=== PATIENT | male | born 1960 | race Caucasian/White ===

== ENCOUNTER 2022-02-26 15:04 | Outpatient (REF) | payer MEDICARE, OTHER, SELFPAY ==
--- NOTE | ~2022-02-26 | US_ITS ---
EXAMINATION: US THYROID CLINICAL INFORMATION: Lump/mass on neck. COMPARISON: None TECHNIQUE: Linear transducer grayscale and color Doppler examination with attention to the region of the thyroid. Additional imaging also includes the bilateral parotid region. Technically suboptimal study secondary to body habitus and position of gland. FINDINGS: SIZE: Measurements of the thyroid lobes and nodules are given in sagittal, anteroposterior and transverse dimensions respectively. Right Thyroid Lobe: 5.3 x 2.0 x 2.3 cm, volume 12.8 mL. Parenchyma: The gland echotexture is within normal. Thyroid vascularity is normal. Left Thyroid Lobe: 4.6 x 1.3 x 1.6 cm, volume 5.0 mL. Parenchyma: The gland echotexture is within normal. Thyroid vascularity is normal. Isthmus: 0.6 cm in maximum AP dimension. No focal thyroid nodule is seen. NODES: No lymphadenopathy is seen in the tissue surrounding the thyroid gland. There is a node adjacent to the left parotid with normal yves architecture and short axis dimensions 0.6 cm. ADDITIONAL: Additional imaging bilateral parotid region shows no cystic or solid mass. US/US thyroid IMPRESSION: -Unremarkable thyroid. No focal nodule. -Node adjacent to left parotid with normal yves architecture and short axis dimensions 0.6 cm. -Otherwise, no cystic or solid mass seen in bilateral parotid regions.
== END 2022-02-26 15:05 | disposition home or self-care (01) ==
LOC: HO.US 15:04
PROVIDERS: PCP Internal Medicine Geriatric Medicine; Visit Provider Internal Medicine Geriatric Medicine
DX: R22.1 Localized swelling, mass and lump, neck (principal)
CPT/HCPCS: 76536

== ENCOUNTER → 2022-06-04 08:04 | Outpatient (BNVA) | payer MEDICARE, OTHER, SELFPAY | PROVIDERS: PCP Internal Medicine Geriatric Medicine; Visit Provider Nurse Practitioner Family | DX: Z01.818 Encounter for other preprocedural examination (principal) | CPT/HCPCS: 99202 ==

== ENCOUNTER 2022-08-13 12:43 | Outpatient (REF) | payer MEDICARE, OTHER, SELFPAY ==
[2022-08-13 13:37] LABS: Hematocrit 49.7 % (42.0-52.0); Hemoglobin 15.7 g/dl (14.0-18.0); Mean Corpuscular HGB Conc 31.6 g/dl (31.0-36.0); Mean Corpuscular Hemoglobin 27.5 pg (27.0-33.0); Mean Platelet Volume 9.5 fL (9.4-12.4); Platelet Count 291 X10*3/uL (160-400); Red Blood Count 5.71 X10*6/uL (4.60-5.80); Red Cell Distribution Width 13.7 % (11.0-16.0); White Blood Count 11.6 X10*3/uL (4.8-10.8)
[2022-08-13 14:04] LABS: Alanine Aminotransferase 37 U/L (0-40); Albumin Level 4.4 g/dL (3.5-5.0); Alkaline Phosphatase 78 U/L (39-117); Anion Gap 16 (12-20); Aspartate Amino Transferase 20 U/L (5-37); Bilirubin Total 0.6 mg/dL (0.0-1.0); Blood Urea Nitrogen 13 mg/dL (9-16); Calcium 9.4 mg/dL (8.4-10.2); Carbon Dioxide 30 mmol/L (22-29); Chloride 101 mmol/L (96-108); Estimated Glomerular Filt Rate > 60; Glucose Random 82 mg/dL (60-115); Potassium 3.9 mmol/L (3.3-5.1); Sodium 143 mmol/L (135-145); Total Protein 7.1 g/dL (6.5-8.0)
== END 2022-08-13 12:44 | disposition home or self-care (01) ==
LOC: HO.LAB 12:43
PROVIDERS: PCP Internal Medicine Geriatric Medicine; Visit Provider Nurse Practitioner Family
DX: Z12.11 Encounter for screening for malignant neoplasm of colon (principal)
CPT/HCPCS: 36415; 80053; 85027

== ENCOUNTER 2023-11-21 11:38 | Outpatient (REF) | payer MEDICARE, OTHER, SELFPAY | END 2023-11-21 11:39 | disposition home or self-care (01) | LOC: HO.HHCL 11:38 | PROVIDERS: Visit Provider Internal Medicine Geriatric Medicine | DX: I12.9 Hypertensive chronic kidney disease with stage 1 through stage 4 chronic kidney disease, or unspecified chronic kidney disease (principal); N18.31 Chronic kidney disease, stage 3a; F31.9 Bipolar disorder, unspecified; Z79.899 Other long term (current) drug therapy | CPT/HCPCS: 36415; 80053; 80061; 80178; 84443; 85025 ==

== ENCOUNTER 2024-05-19 14:21 | Outpatient (REF) | payer MEDICARE, OTHER, SELFPAY ==
[2024-05-19 16:32] LABS: Anion Gap 12 (12-20); Blood Urea Nitrogen 16 mg/dL (9-16); Calcium 9.7 mg/dL (8.4-10.2); Carbon Dioxide 33 mmol/L (22-29); Chloride 100 mmol/L (96-108); Estimated Glomerular Filt Rate > 60; Glucose Random 92 mg/dL (60-115); Sodium 142 mmol/L (135-145)
[2024-05-19 16:38] LABS: Lithium 0.58 mmol/L (0.60-1.20)
== END 2024-05-19 14:22 | disposition home or self-care (01) ==
LOC: HO.HHCL 14:21
PROVIDERS: Visit Provider Internal Medicine Geriatric Medicine
DX: F31.9 Bipolar disorder, unspecified (principal); I10 Essential (primary) hypertension; Z79.899 Other long term (current) drug therapy
CPT/HCPCS: 36415; 80048; 80178

== ENCOUNTER 2025-03-17 09:23 | Outpatient (REF) | payer MEDICARE, OTHER, SELFPAY ==
--- OUTSIDE RECORDS SUMMARY | 2025-03-17 10:18 | XMS_ITS | Clinical Summary ---
Author Organization [employer] Address [address] [facility] 7t [place] [address] Care Team Providers Care Crushing Foreman Name Role Phone Name, Shabbir SHEPARD Primary Care Provider [phone] Ciro Lilly DMD Unavailable GreggOneida silva OD Unavailable [phone] Channing Montgomery DPM Unavailable [phone] Allergies Active Allergy Reactions Criticality Noted Date Comments Serbian Cockroach 08/25/2024 Hives and agioedema Penicillin V High 11/01/2013 Other reaction(s): itchiness Medications sildenafil (Viagra) 50 MG tablet take 1 tablet by oral route every day as needed approximately 1 hour before sexual activity 07/17/20 22 Active albuterol 108 (90 Base) MCG/ACT inhaler inhale 2 puff by inhalation route every 4 - 6 hours as needed 03/05/20 22 Active EPINEPHrine (Epipen) 0.3 MG/0.3ML injection syringe inject 0.3 milliliter by intramuscular route once as needed for anaphylaxis 02/11/20 20 Active lamoTRIgine (LaMICtal) 100 MG tablet TAKE 1 TABLET BY MOUTH EVERY DAY 90 tablet 5 07/28/20 24 Active buPROPion (Wellbutrin) 75 MG tablet TAKE 1 TABLET BY MOUTH DAILY IN THE MORNING 90 tablet 5 07/28/20 24 Active lithium ER (Eskalith) 450 MG 12 hr tablet TAKE 1 TABLET BY MOUTH EVERY DAY 180 tablet 3 07/28/20 24 Active atorvastatin (Lipitor) 20 MG tablet TAKE 1 TABLET BY MOUTH EVERY DAY 90 tablet 3 07/28/20 24 Active potassium chloride ER (Micro-K) 10 MEQ ER capsule TAKE 1 CAPSULE BY MOUTH EVERY DAY WITH FOOD 30 capsule 5 09/23/20 24 Active albuterol (2.5 MG/3ML) 0.083% nebulizer solutionIndica tions:Cough in adult Take 3 mL (2.5 mg) by nebulization every 6 (six) hours if needed for wheezing. 75 mL 2 11/24/19 25 Active Aspirin Low Dose 81 MG EC tablet TAKE 1 TABLET BY MOUTH EVERY DAY 90 tablet 3 12/01/19 25 Active furosemide (Lasix) 20 MG tablet TAKE 1 TABLET BY MOUTH EVERY DAY NEEDED FOR leg swelling 30 tablet 2 12/17/19 25 Active ibuprofen 800 MG tabletIndicati ons:Anterior knee pain, unspecified laterality TAKE 1 TABLET BY MOUTH THREE TIMES DAILY WITH FOOD NEEDED FOR MILD OR MODERATE PAIN 90 tablet 01/12/20 25 Active clonazePAM (KlonoPIN) 2 MG tabletIndicati ons:Anxiety TAKE 1 TABLET BY MOUTH TWICE DAILY FOR 28 DAYS 56 tablet 03/10/20 25 Active clonazePAM (KlonoPIN) 2 MG tabletIndicati ons:Anxiety TAKE 1 TABLET BY MOUTH TWICE DAILY FOR 28 DAYS 56 tablet 02/03/20 25 2024 Discontinued Active Problems Problem Noted Date Diagnosed Date Missing teeth, acquired 09/26/2023 Dental plaque 09/26/2023 Dental caries 09/26/2023 Localized gingival recession 09/26/2023 Anterior knee pain 07/10/2023 Stage 3a chronic kidney disease (CKD) 12/25/2022 COVID 11/19/2022 Assessment & Plan (12/17/2022 12:57 PM EST): Symptom started 4 days ago, currently having coughing and chills, no shortness of breath, will start on paxlovid, risk vs benefits discuss, hold atorvastatin, in case of worsening symptoms visit er Morbid obesity 12/19/2017 Obstructive sleep apnea syndrome 06/23/2017 Snoring 05/09/2017 Overview (07/10/2023): Will start benzonatate Assessment & Plan (11/19/2022 1:28 PM EST): Patient started with symptoms of cough, chills on 11/16, he tested positive for covid Foot pain 04/11/2017 Hypertensive disorder 09/24/2016 Hepatitis C antibody test positive 09/24/2016 Overview (02/26/2024): Treated Hep C in the past Obesity (BMI 30-39.9) 06/25/2016 Asthma 08/26/2014 Hyperlipidemia 08/26/2014 Bipolar I disorder 12/02/2013 Infectious viral hepatitis Encounters Date Type Department Care Team Description 03/17/2025 10:00 AM EDT Office Visit [facility] ADULT DENTAL [address] [place] [address] Ciro Lilly DMD Arrived 03/10/2025 Telephone [facility] [address] [place] [address] Shabbir Treviño MD Med Refill 03/04/2025 Refill [facility] [address] [place] [address] Shabbir Treviño MD Anxiety 02/28/2025 Refill [facility] [address] [place] [address] Shabbir Treviño MD Anxiety 02/22/2025 1:00 PM EDT Office Visit [facility] [address] [place] [address] Aimee Sherman 01/28/2025 Population Health Risk Score [facility] ([facility] Department [address] [place] [phone] Provider, Population Health Generic 01/26/2025 Refill [facility] [address] [place] [address] Shabbir Treviño MD Anxiety 01/17/2025 2:00 PM EST Office Visit [facility] [address] [place] [address] Pallavi Mead MD Screen for sexually transmitted diseases (Primary Dx); Infectious viral hepatitis 01/17/2025 Telephone [facility] [address] [place] [address] Naa Aldana RN 01/17/2025 Travel 01/14/2025 Telephone [facility] [address] [place] [address] Naa Aldana RN 01/12/2025 11:15 AM EST Office Visit [facility] [address] [place] [address] NameShabbir MD Hypertension, unspecified type (Primary Dx); Hyperlipidemia, unspecified hyperlipidemia type; Bipolar I disorder (CMS/HCC); Encounter for screening for malignant neoplasm of colon; Hypertrophic toenail; Nocturia 01/11/2025 Refill [facility] [address] [place] [address] NameShabbir MD Anterior knee pain, unspecified laterality 12/30/2024 Refill [facility] [address] [place], [place] [phone] Shabbir Treviño MD Anxiety 12/27/2024 Telephone [facility] [address] [place] [address] Shabbir Treviño MD 12/18/2024 Refill [facility] [address] [place], [place] [phone] Nelly Mcneal NP Anxiety from Last 3 Months Immunizations Name Administration Dates Next Due Hep A, Adult 06/17/2016,12/14/2015 Hep B, adult 01/16/2016,12/14/2015 Influenza Quadrivalent Adjuvanted 08/21/2023 Influenza injectable quadriv alent IIV4 with preservative 09/11/2018,09/24/2016,08/07/2015 Influenza injectable quadriv alent preservative free 08/08/2022,08/22/2020,09/13/2019,2016 Influenza, High Dose Seasona l, Preservative Free 08/25/2024 Influenza, IIV3, injectable 08/26/2014 Influenza, Split (incl. diana fied surface antigen) 11/01/2013 Pfizer Covid-19 Vaccine 12+ 08/25/2024, Pfizer Covid-19 Vaccine 12+ Bivalent 12/25/2022, 08/20/2022 Pfizer Covid-19 Vaccine 12+ joey-sucrose (Grace Cap) 04/11/2022 Pneumococcal Conjugate PCV 20 07/11/2023 Tdap 02/25/2024,12/02/2013 Zoster, Recombinant 09/15/2023,07/16/2023 Family History Medical History Relation Name Comments No Known Problems Brother No Known Problems Father Hypertension Mother No Known Problems Sister Relation Name Status Comments Brother Father Mother Sister Social History Tobacco Use Types Packs/Day Years Used Date Smoking Tobacco: Never Passive Smoke Exposure: Never Smokeless Tobacco: Never Tobacco Cessation:Counseling Given: Not Answered Alcohol Use Standard Drinks/Week Comments Yes 0 (1 standard drink = 0.6 oz pur e alcohol) socially Alcohol Answer Date Recorded Frequency of Alcohol Consumption Not on file 05/19/2024 Average Number of Drinks Not on file 024 Frequency of Binge Drinking Not on file 01/2024 Score 0 05/19/2024 Depression Answer Date Recorded Patient Health Questionnaire-9 Score 12 01/12/2025 Patient Health Questionnaire-9 Score 12 01/12/2025 Last PHQ-9: Questionnaire Data Not on file 0 01/12/2025 Housing Stability Answer Date Recorded What is your housing situation today? I have housing today, but I am worried about losing housing in the future 01/17/[address] you li ve. Do you have problems with any of the following? None of the above 01/17/2025 Food Insecurity Answer Date Recorded Within the past 12 months, y ou worried that your food would run out before you got money to buy more: Never True 02/25/2024 Within the past 12 months,th e food you bought just didn't last and you didn't have enough money to get more: Never True 08/2024 Transportation Answer Date Recorded In the past 12 months, has l ack of transportation kept you from medical appts, meetings, work or from getting things needed for daily living? Yes, it has kept me from medical appointments or getting medications. 02/25/2024 Utilities Answer Date Recorded In the past 12 months, has t he electric, gas, oil or water company threatened to shut off services in your home? No 02/25/2024 Depression Answer Date Recorded Patient Health Questionnaire-2 Score 3 01/12/2025 Internet Access Answer Date Recorded Internet Access Q1 Yes 01/17/2025 Internet Access Q2 Not on file 01/17/2025 Sex and Gender Information Value Date Recorded Sex Assigned at Male 09/16/2022 10:18 AM EDT Legal Sex Male 10:18 AM EDT Gender Identity Male 09/16/2022 10:18 AM EDT Sexual Orientation Straight 09/16/2022 10 :18 AM EDT Last Filed Vital Signs Vital Sign Reading Time Taken Comments Blood Pressure 134/80 03/17/2025 9:38 AM EDT Pulse 74 03/17/2025 9:38 AM EDT Temperature 36.7 ??C (98 ??F) 01/12/2025 11:21 AM EST Respiratory Rate 18 01/17/2025 2:04 PM EST Oxygen Saturation 98% 08/25/2024 12:01 PM EDT Inhaled Oxygen Concentration - - Weight 122 kg (269 lb 6.4 oz) 01/17/2025 2:04 PM EST Height 181 cm (5' 11.26 ) 01/17/2025 2:04 PM EST Body Mass Index 37.3 01/17/2025 2:04 PM EST Plan of Treatment Upcoming Encounters Date Type Department Care Team (Late st Contact Info) Description 04/08/2025 11:15 AM EDT Office Visit [facility] [address] [place] [address] Name, MD Shabbir [address] [place] [address] 05/02/2025 2:30 PM EDT Office Visit [facility] [address] [place] [address] Patrick Young, MEHRANS [address] [place] [address] 05/04/2025 3:00 PM EDT Office Visit [facility] OPT[facility] [address] [place] [address] GreggOneida silva, OD [address] [place] [address] 08/30/2025 1:00 PM EDT Office Visit [facility] [address] [place] [address] Aimee [place] Health Maintenance Due Date Last Done Comments Anal Pap 1958 CT Colonography 1958 FIT DNA/Cologuard 1958 FIT 1958 FOBT 1958 Sigmoidoscopy 1958 Hepatitis C Screening 1976 Hepatitis B Vaccines (3 of 3 - Risk 3-dose series) 06/13/2016 01/16/2016, 12/14/2015 RSV Patients and Patients Aged 60 years or older (1 - Risk 60-74 years 1-dose series) 2018 Colonoscopy 03/08/2019 03/08/2014 Colorectal Cancer Screening 03/08/2019 Dental Oral Exam 08/25/2025 02/22/2025, 08/2023, 10/28/2019, Additional history exists Dental Prophylaxis 08/25/2025 02/22/2025, 1 11/26/2022, 10/28/2019, Additional history exists Depression Screening 01/12/2026 01/12/2025, 01/12/20 Alcohol/Substance Use Screening 01/17/2026 01/17/2025 SDOH Screening 01/17/2026 01/17/2025 Dental X-Ray: Bitewings 02/23/2026 02/23/20 25, 09/26/2023, 10/28/2019, Additional history exists Tobacco Screening 03/17/2026 03/17/2025 Dental X-Ray: Full Mouth 09/27/2026 023, 10/28/2019, 02/26/2016 Lipid Panel 11/21/2028 11/21/2023, 07/04/2022, 06/06/2020 DTaP/Tdap/Td Vaccines (3 - Td or Tdap) 02/24/2034 02/25/2024, 12/02/2013 Hepatitis A Vaccines Completed 06/17/2016, 12/14/19 16 Pneumococcal Vaccine: 50+ Years Completed 07/11/2023 Zoster Vaccines Completed 09/15/2023, 07/16/2023 COVID-19 Vaccine Completed 08/25/2024, 06/2023, 08/20/2022, Additional history exists Influenza Vaccine Completed 08/25/2024, , 08/08/2022, Additional history exists HIB Vaccines Aged Out No longer eligi ble based on patient's age to complete this topic HPV Vaccines Aged Out No longer eligi ble based on patient's age to complete this topic IPV Vaccines Aged Out No longer eligi ble based on patient's age to complete this topic Meningococcal Vaccine Aged Out No jes [place] eligible based on patient's age to complete this topic RSV under 20 months Aged Out No longe r eligible based on patient's age to complete this topic Rotavirus Vaccines Aged Out No longer eligible based on patient's age to complete this topic Procedures Procedure Name Priority Date/Time Associated Diagnosis Comments NO CHARGE PROCEDURE Routine 03/17/2025 1 0:00 AM EDT PERIODIC ORAL EVALUATION - ESTABLISHED PATIENT Routine 02/22/2025 1:00 PM EDT PROPHYLAXIS - ADULT Routine 02/22/2025 1 :00 PM EDT INTRAORAL - PERIAPICAL EACH ADDITIONAL RADIOGRAPHIC IMAGE Routine 02/22/2025 1:00 PM EDT INTRAORAL - PERIAPICAL FIRST RADIOGRAPHIC IMAGE Routine 02/22/2025 1:00 PM EDT BITEWINGS - 4 RADIOGRAPHIC IMAGES Routine 02/22/2025 1:00 PM EDT ORAL HYGIENE INSTRUCTIONS Routine 02/22/2025 1:00 PM EDT CASE PRESENTATION, DETAILED AND EXTENSIVE TREATMENT PLANNING Routine 02/22/2025 1:00 PM EDT INTRAORAL - PERIAPICAL EACH ADDITIONAL RADIOGRAPHIC IMAGE Routine 02/22/2025 1:00 PM EDT LIPID PANEL, STANDARD Routine 11/21/2023 11:42 AM EST Hypertension, unspecified type Bipolar I disorder (CMS/HCC) Stage 3a chronic kidney disease (CKD) (CMS/HCC) INTRAORAL - COMPLETE SERIES OF RADIOGRAPHIC IMAGES Routine 09/26/2023 1:00 PM EST HM COLONOSCOPY Routine 03/08/2014 from Last 3 Months or Most Recently Relevant to Health Maintenance Results * (ABNORMAL) Lipid Panel, Standard (11/21/2023 11:42 AM EST) Triglycerides 122 <150 mg/dL [facility] Comment:Desirable Triglyceri de: less than 150 mg/dLBorderline High Triglyceride 150-199 mg/dLHigh Triglyceride: 200-499 mg/dLVery High Triglyceride: greater than or equal to 5OO mg/dL Cholesterol 124 <200 mg/dL [facility] Comment:Desirable Cholestero l: less than 200 mg/dLBorderline High Cholesterol: 200-239 mg/dLHigh Cholesterol: greater than 239 mg/dL LDL Cholesterol Calculated 61 <100 mg/dL [facility] Comment:Desirable LDL: less than 100 mg/dLNear Optimal/Above Optimal LDL: 110- 129 mg/dLBorderline High LDL: 130-159 mg/dLHigh LDL: 160-189 mg/dLVery High LDL: greater than or equal to 190 mg/dL HDL Cholesterol 39(L) >40 mg/dL [facility] Comment:Desirable HDL: great er than 40 mg/dL Note: This HDL assay may give artificially low results in patients with liver disease. Blood Venous blood specimen / Unknown 11/21/2023 11:42 AM EST 11/21/2023 1:25 PM EST Shabbir Treviño MD LAB BLOOD ORDERABLES Final Resul t [facility] [address] [place] [phone] * (ABNORMAL) Colonoscopy (03/08/2014) Colonoscopy Abnormal(A ) Normal [facility] External Provider HEALTH MAINTENANCE Final Result from Last 3 Months or Most Recently Relevant to Health Maintenance Insurance [place] [address] [place] [id number] [facility] STANDARD DENTAL - HSN FULL (MEDICAID) Care Teams Crushing Foreman Relationship Specialty Start Date End Date Name, MD Shabbir [address] [place] [address] PCP - General Family Medicine 02/21/16 Ciro Lilly DMD [address] [place] [address] Dental Mechanical Piping Designer 01/17/25 Oneida Escobedo OD [address] [place] [address] Optometry 01/17/25 Channing [place] DPM [address] [address] Podiatry 01/17/25
--- OUTSIDE RECORDS SUMMARY | 2025-03-17 10:18 | XMS_ITS | Encounter Summary ---
Author Organization [employer] Address [address] [place] [address] Care Team Providers Care Posting Machine Operator Name Role Phone Name, Shabbir SHEPARD Primary Care Provider [phone] Ciro Lilly DMD Unavailable GreggOneida silva OD Unavailable [phone] Channing [place] DPM Unavailable [phone] Reason for Visit * Reason Comments Med Refill Encounter Details Date Type Department Care Team (Late st Contact Info) Description 10/06/2024 Refill [facility] [address] [place], [place] [phone] Name, MD Shabbir [address] [place], [place] [phone] Social History Tobacco Use Types Packs/Day Years Used Date Smoking Tobacco: Never Smokeless Tobacco: Never Alcohol Use Standard Drinks/Week Comments Yes 0 (1 standard drink = 0.6 oz pur e alcohol) socially Alcohol Answer Date Recorded Frequency of Alcohol Consumption Not on file 05/19/2024 Average Number of Drinks Not on file 024 Frequency of Binge Drinking Not on file 01/2024 Score 0 05/19/2024 Depression Answer Date Recorded Patient Health Questionnaire-9 Score 14 02/25/2024 Patient Health Questionnaire-9 Score 14 02/25/2024 Last PHQ-9: Questionnaire Data Not on file 0 02/25/2024 Housing Stability Answer Date Recorded What is your housing situation today? I have duncan nair 02/25/[address] you li ve. Do you have problems with any of the following? None of the above 02/25/2024 Food Insecurity Answer Date Recorded Within the [...] Date Recorded Patient Health Questionnaire-2 Score 3 02/25/2024 Sex and Gender Information Value Date Recorded Sex Assigned at Male 09/16/2022 10:18 AM EDT Legal Sex Male 10:18 AM EDT Gender Identity Male 09/16/2022 10:18 AM EDT Sexual Orientation Straight 09/16/2022 10 :18 AM EDT documented as of this encounter Plan of Treatment Upcoming Encounters Date Type Department Care Team (Late st Contact Info) Description 04/08/2025 11:15 AM EDT Office Visit [facility] [address] [place] [address] Name, MD Shabbir [address] [place] [address] 05/02/2025 2:30 PM EDT Office Visit [facility] ADULT DENTAL [address] [place] [address] Patrick Young DDS [address] [place] [address] 05/04/2025 3:00 PM EDT Office Visit [facility] OPTOMETRY [address] [place] [phone] Oneida Escoebdo, OD [address] [place] [address] 08/30/2025 1:00 PM EDT Office Visit [facility] ADULT DENTAL [address] [place] [address] Aimee [place] documented as of this encounter Visit Diagnoses Not on filedocumented in this encounter Additional Health Concerns Assessment Noted Time PHQ-9 Depression Total Score: 14 024 2:17 PM EDT documented as of this encounter Care Teams Posting Machine Operator Relationship Specialty Start Date End Date Name, MD Shabbir [address] [place] [address] PCP - General Family Medicine 02/21/16 Ciro Lilly DMD [address] [place], [place] [phone] Dental Mandrel Maker 01/17/25 Oneida Escobedo OD [address] [place] [address] Optometry 01/17/25 Channing [place] DPM [address] [place] [phone] Podiatry 01/17/25 documented as of this encounter
--- OUTSIDE RECORDS SUMMARY | 2025-03-17 10:18 | XMS_ITS | Encounter Summary ---
Author Organization [employer] Address [address] [facility] 7t [place] [address] Care Team Providers Care Camp Recreation Specialist Name Role Phone Name, Shabbir SHEPARD Primary Care Provider [phone] Ciro Lilly DMD Unavailable Gregg, Oneida OD Unavailable [phone] Channing [place] DPM Unavailable [phone] Reason for Visit * Reason Comments Med Refill Encounter Details Date Type Department Care Team (Late st Contact Info) Description 12/23/2023 Refill [facility] [address] [place] [address] Name, MD Shabbir [address] [place], [place] [phone] Social History Tobacco Use Types Packs/Day Years Used Date Smoking Tobacco: Never Smokeless Tobacco: Never Alcohol Use Standard Drinks/Week Comments Yes 0 (1 standard drink = 0.6 oz pur e alcohol) socially PHQ-2 Answer Date Recorded Patient Health Questionnaire-2 Score 2 12/25/2022 Housing Stability Answer Date Recorded What is your housing situation today? I have duncanlanre nair 09/03/[address] you li ve. Do you have problems with any of the following? None of the above 09/03/2023 Food Insecurity Answer Date Recorded Within the past 12 months, y ou worried that your food would run out before you got money to buy more: Never True 09/03/2023 Within the past 12 months,th e food you bought just didn't last and you didn't have enough money to get more: Never True Transportation Answer Date Recorded In the past 12 months, has l ack of transportation kept you from medical appts, meetings, work or from getting things needed for daily living? No 09/03/2023 Utilities Answer Date Recorded In the past 12 months, has t he electric, gas, oil or water company threatened to shut off services in your home? No 09/03/2023 Depression Answer Date Recorded Patient Health Questionnaire-2 Score 2 12/25/2022 Sex and Gender Information Value Date Recorded Sex Assigned at Male 09/16/2022 10:18 AM EDT Legal Sex Male 10:18 AM EDT Gender Identity Male 09/16/2022 10:18 AM EDT Sexual Orientation Straight 09/16/2022 10 :18 AM EDT documented as of this encounter Plan of Treatment Upcoming Encounters Date Type Department Care Team (Late st Contact Info) Description 04/08/2025 11:15 AM EDT Office Visit [facility] [address] [place] [address] Name, MD Shabbir [address] [place] [address] 05/02/2025 2:30 PM EDT Office Visit [facility] ADULT DENTAL [address] [place] [address] Patrick Young DDS [address] [place] [address] 05/04/2025 3:00 PM EDT Office Visit [facility] OPTOMETRY [address] [place] [address] Gregg, Oneida, OD [address] [place] [address] 08/30/2025 1:00 PM EDT Office Visit [facility] ADULT DENT[facility] [address] [place] [address] Aimee [place] documented as of this encounter Visit Diagnoses Not on filedocumented in this encounter Care Teams Camp Recreation Specialist Relationship Specialty Start Date End Date NameShabbir MD [address] [place] [phone] PCP - General Family Medicine 02/21/16 Ciro Lilly DMD [address] [place], [place] [phone] Dental E/M Engineer 01/17/25 Oneida Escobedo OD [address] [place], [place] [phone] Optometry 01/17/25 Channing [place] DPM [address] [address] Podiatry 01/17/25 documented as of this encounter
--- OUTSIDE RECORDS SUMMARY | 2025-03-17 10:18 | XMS_ITS | Encounter Summary ---
Author Organization [employer] Address [address] [facility] [address] 7t [place] [address] Care Team Providers Care Metalizer Field Operation Name Role Phone Name, Shabbir SHEPARD Primary Care Provider [phone] Ciro Lilly DMD Unavailable GreggOneida silva OD Unavailable [phone] Channing Montgomery DPM Unavailable [phone] Reason for Visit * Reason Comments Med Refill Encounter Details Date Type Department Care Team (Late st Contact Info) Description 12/18/2024 Refill [facility] MED & PEDS [address] [place] [address] Nelly Mcneal NP 230 [place] [address] Anxiety Social History Tobacco Use Types Packs/Day Years [...] Description 04/08/2025 11:15 AM EDT Office Visit [facility] MEDICINE [address] [place] [address] Name, MD Shabbir [address] [place] [address] 05/02/2025 2:30 PM EDT Office Visit [facility] ADULT DENTAL [address] [place] [address] Patrick Young DDS [address] [place] [address] 05/04/2025 3:00 PM EDT Office Visit [facility] OPTOMETRY [address] [place] [address] Oneida Escobedo, OD [address] [place] [address] 08/30/2025 1:00 PM EDT Office Visit [facility] ADULT DENTAL [address] [place] [address] Aimee Sherman documented as of this encounter Visit Diagnoses Diagnosis Anxiety Anxiety state, unspecified documented in this encounter Additional Health Concerns Assessment Noted Time PHQ-9 Depression Total Score: 14 024 2:17 PM EDT documented as of this encounter Care Teams Metalizer Field Operation Relationship Specialty Start Date End Date Name, MD Shabbir [address] [place] [address] PCP - General Family Medicine 02/21/16 Ciro Lilly DMD [address] [place], [place] [phone] Dental Appeals Rn 01/17/25 Oneida Escobedo OD 230 [place] [address] Optometry 01/17/25 Channing Montgomery DPM [address] [place] [address] Podiatry 01/17/25 documented as of this encounter
--- OUTSIDE RECORDS SUMMARY | 2025-03-17 10:18 | XMS_ITS | Encounter Summary ---
Author Organization [employer] Address 75 [facility] 7t [place] [address] Care Team Providers Care Administrator Name Role Phone Name, Shabbir SHEPARD Primary Care Provider [phone] Ciro Lilly DMD Unavailable GreggOneiad silva OD Unavailable [phone] Channing Montgomery DPM Unavailable [phone] Encounter Details Date Type Department Care Team (Latest Contact Info) Description 10/28/2019 Abstract [facility] CONVERSIONS Dental, Provider, DDS Social History Tobacco Use Types Packs/Day Years Used Date Smoking Tobacco: Never Assessed Sex and Gender Information Value Date Recorded Sex Assigned at Male 09/16/2022 10:18 AM EDT Legal Sex Male 10:18 AM EDT Gender Identity Male 09/16/2022 10:18 AM EDT Sexual Orientation Straight 09/16/2022 10 :18 AM EDT documented as of this encounter Plan of Treatment Upcoming Encounters Date Type Department Care Team (Late st Contact Info) Description 04/08/2025 11:15 AM EDT Office Visit [facility] MEDICINE [address] [place] [address] [phone] Name, MD Shabbir [address] [place], [place] [phone] 05/02/2025 2:30 PM EDT Office Visit [facility] ADULT DENTAL [address] [place], [place] [phone] Patrick Young DDS [address] [place], [place] [phone] 05/04/2025 3:00 PM EDT Office Visit [facility] OPTOMETRY [address] [place] [address] Oneida Escobedo, OD [address] [place] [address] 08/30/2025 1:00 PM EDT Office Visit [facility] ADULT DENTAL [address] [place] [address] Aimee Sherman documented as of this encounter Visit Diagnoses Not on filedocumented in this encounter Care Teams Administrator Relationship Specialty Start Date End Date Name, MD Shabbir [address] [place] [address] PCP - General Family Medicine 02/21/16 Ciro Lilly DMD [address] [place] [address] Dental Care Transitions Nurse 01/17/25 Oneida Escobedo, OD [address] [place] [address] Optometry 01/17/25 Channing Montgomery DPM [address] [place] [address] Podiatry 01/17/25 documented as of this encounter
--- OUTSIDE RECORDS SUMMARY | 2025-03-17 10:18 | XMS_ITS | Encounter Summary ---
Author Organization [employer] Address 75 [facility] 7t [place] [address] Care Team Providers Care Orthopedic Designer Name Role Phone Name, Shabbir SHEPARD Primary Care Provider [phone] Ciro Lilly DMD Unavailable GreggOneida silva OD Unavailable [phone] Channing Montgomery DPM Unavailable [phone] Reason for Visit * Reason Onset Date Comments Appointment Request 10/13/2023 Encounter Details Date Type Department Care Team ([facility] Contact Info) Description 10/13/2023 Telephone [facility] MEDICINE [address] [place], [place] [phone] Name, MD Shabbir 230 [place], [place] [phone] Appointment Request Social History Tobacco Use Types Packs/Day Years Used Date Smoking Tobacco: Never Smokeless Tobacco: Never Alcohol Use Standard Drinks/Week Comments Yes 0 (1 standard drink = 0.6 oz pur e alcohol) socially PHQ-2 Answer Date Recorded Patient Health Questionnaire-2 Score 2 12/25/2022 Housing Stability Answer Date Recorded What is your housing situation today? I have duncan korey 09/03/[address] you li [...] AM EDT documented as of this encounter Miscellaneous Notes * Telephone Encounter - Cynthia Ferrell - 10/13/2023 2:55 PM EST Tc from pt stating on last appt with Pcp he supposed to have another follow up appt 8 weeks after. Silk Finisher don't see nothing on last office visit neither recall list. PCP Dr. Treviño documented in this encounter Plan of Treatment Upcoming Encounters Date Type Department Care Team (Late st Contact Info) Description 04/08/2025 11:15 AM EDT Office Visit [facility] MEDICINE 230 [place] [address] Name, MD Shabbir [address] [place] [address] 05/02/2025 2:30 PM EDT Office Visit [facility] ADULT DENTAL 230 [place] [address] Patrick Young DDS 230 [place] [address] 05/04/2025 3:00 PM EDT Office Visit [facility] OPTOMETRY [address] [place] [address] Oneida Escobedo, OD 230 [place] [address] 08/30/2025 1:00 PM EDT Office Visit [facility] ADULT DENTAL 230 [place], [place] [phone] Aimee Sherman documented as of this encounter Visit Diagnoses Not on filedocumented in this encounter Care Teams Orthopedic Designer Relationship Specialty Start Date End Date Name, MD Shabbir 230 [place], [place] [phone] PCP - General Family Medicine 02/21/16 Ciro Lilly DMD 230 [place], [place] [phone] Dental [facility] Television Rental Clerk 01/17/25 Oneida Escobedo OD 230 [place], [place] [phone] Optometry 01/17/25 Channing Montgomery DPM [address] [place] [address] Podiatry 01/17/25 documented as of this encounter
--- OUTSIDE RECORDS SUMMARY | 2025-03-17 10:18 | XMS_ITS | Encounter Summary ---
Author Organization [employer] Address [address] [facility] [address] 7t [place] [address] Care Team Providers Care Assistant Front End Manager Name Role Phone Name, Shabbir SHEPARD Primary Care Provider [phone] Ciro Lilly DMD Unavailable GreggOneida silva OD Unavailable [phone] Channing Montgomery DPM Unavailable [phone] Reason for Visit * Reason Comments Filling Encounter Details Date Type Department Care Team ([facility] Contact Info) Description 03/17/2025 10:00 AM EDT Office Visit [facility] ADULT DENTAL 230 [place] [address] Ciro Lilly DMD 230 [place] [address] Arrived Social History Tobacco Use Types Packs/Day Years Used Date Smoking Tobacco: Never Passive Smoke Exposure: Never Smokeless Tobacco: Never Alcohol Use Standard [...] AM EDT documented as of this encounter Last Filed Vital Signs Vital Sign Reading Time Taken Comments Blood Pressure 134/80 03/17/2025 9:38 AM EDT Pulse 74 03/17/2025 9:38 AM EDT Temperature - - Respiratory Rate - - Oxygen Saturation - - Inhaled Oxygen Concentration - - Weight - - Height - - Body Mass Index - - documented in this encounter Progress Notes * Ciro Lilly DMD - 03/17/2025 10:00 AM EDT Pt does not want to have #30 restore in today visit. Inform pt that #30 has interproximal caries I also inform pt that #31 need exo due to existing subgingival broken tooth structure with recurrent caries. Pt does not want to have exo#31 neither Temp filling is being placed on #30 NV: exo #7,10 with Tiny Nolan documented in this encounter Plan of Treatment Upcoming Encounters Date Type Department Care Team (Late st Contact Info) Description 04/08/2025 11:15 AM EDT Office Visit [facility] MEDICINE 230 [place] [address] Name, MD Shabbir 230 [place] [address] 05/02/2025 2:30 PM EDT Office Visit [facility] ADULT DENTAL 230 [place] [address] Patrick Young DDS 230 [place] [address] 05/04/2025 3:00 PM EDT Office Visit [facility] OPTOMETRY [address] [place] [address] Oneida Escobedo, SHELLEY 230 [place] [address] 08/30/2025 1:00 PM EDT Office Visit [facility] ADULT DENTAL 230 [place] [address] Aimee Sherman documented as of this encounter Procedures Procedure Name Priority Date/Time Associated Diagnosis Comments NO CHARGE PROCEDURE Routine 03/17/2025 10:00 AM EDT documented in this encounter Visit Diagnoses Not on filedocumented in this encounter Additional Health Concerns Assessment Noted Time PHQ-9 Depression Total Score: 12 025 11:53 AM EST documented as of this encounter Care Teams Assistant Front End Manager Relationship Specialty Start Date End Date Name, [place] [address] PCP - General Family Medicine 02/21/16 Ciro Lilly DMD [address] [place] [address] Dental [employer] Intermodal Truck Driver 01/17/25 Oneida Escobedo OD [address] [place] [address] Optometry 01/17/25 Channing Montgomery DPM [address] [address] Podiatry 01/17/25 documented as of this encounter
--- OUTSIDE RECORDS SUMMARY | 2025-03-17 10:18 | XMS_ITS | Clinical Summary ---
Author Organization [facility] Address [address] [place] [address] Phone Care Team Providers Care Nurse Intern Name Role Phone Unavailable Primary Care Provider Unavailabl e Social History Tobacco Use Types Packs/Day Years Used Date Smoking Tobacco: Never Assessed Sex and Gender Information Value Date Recorded Sex Assigned at Not on file Legal Sex Male 4:01 PM EDT Gender Identity Not on file Sexual Orientation Not on file Plan of Treatment Upcoming Encounters Date Type Department Care Team ([facility] Contact Info) Description 05/05/2025 1:00 PM EDT Consult Orthopedic Surgery - [place] [address] [phone] Carlo Bergeron, DPM [address] [address] Health Maintenance Due Date Last Done Comments DTaP,Tdap,and Td Vaccines (1 - Tdap) 1977 Pneumococcal Vaccine: 50+ Ye ars (1 of 1 - PCV) 2008 Zoster Vaccines (1 of 2) 2008 COVID-19 Vaccine ( - 2023-2 5 season) 2024 Abdominal Aortic Aneurysm (A AA) Screen 02/23/2025 Cholesterol Screening (Lipid Panel) 02/23/2025 Colorectal Cancer Screening: Colonoscopy 02/23/2025 Depression Screening 02/23/2025 Falls Risk Assessment 02/23/2025 Hepatitis C Screening 02/23/2025 Medicare Annual Wellness Visit 02/23/2025 Social Influencers of Health Screening 02/23/2025 Influenza Vaccine (Season Ended) 2025 RSV Immunization Adult Patie nts (1 - 1-dose 75+ series) 2033 HIB Vaccines Aged Out No longer eligi ble based on patient's age to complete this topic HPV Vaccines Aged Out No longer eligi ble based on patient's age to complete this topic Hepatitis A Vaccines Aged Out No long er eligible based on patient's age to complete this topic Hepatitis B Vaccines Aged Out No long er eligible based on patient's age to complete this topic IPV Vaccines Aged Out No longer eligi ble based on patient's age to complete this topic MMR Vaccines Aged Out No longer eligi ble based on patient's age to complete this topic Meningococcal ACWY Vaccine Aged Out N o longer eligible based on patient's age to complete this topic Meningococcal B Vaccine Aged Out No l onger eligible based on patient's age to complete this topic RSV Immunization Patients Un jf 20 months Aged Out No longer eligible b ased on patient's age to complete this topic Varicella Vaccines Aged Out No longer eligible based on patient's age to complete this topic Insurance MEDICAID - [place] MEDICARE
--- OUTSIDE RECORDS SUMMARY | 2025-03-17 10:18 | XMS_ITS | Encounter Summary ---
Author Organization [employer] Address 75 [facility] 7t [place] [address] Care Team Providers Care Civil Design Technician Name Role Phone Name, Shabbir SHEPARD Primary Care Provider [phone] Ciro Lilly DMD Unavailable GreggOneida silva OD Unavailable [phone] Channing Montgomery DPM Unavailable [phone] Reason for Visit * Reason Onset Date Comments Med Refill 12/23/2023 Encounter Details Date Type Department Care Team (Late st Contact Info) Description 12/23/2023 Telephone [facility] MEDICINE [address] [place], [place] [phone] Name, MD Shabbir 230 [place], [place] [phone] Med Refill Social History Tobacco Use Types Packs/Day Years [...] encounter Miscellaneous Notes * Telephone Encounter - Tex Ann RN - 12/24/2023 10:09 AM EST Meds. Que for approval. * Telephone Encounter - Tex Ann RN - 12/24/2023 9:39 AM EST T/C to pt. For below message, Pt. States he has arthritis and looking for medication for arthritis.Please review and advise. * Telephone Encounter - Tyrese Daniels - 12/23/2023 3:49 PM EST TC from pt requesting medication refill. Medications needing refill : Ibuprofen 800 mg tablet To be sent to: [facility] Medication is currently inactive. documented in this encounter Plan of Treatment Upcoming Encounters Date Type Department Care Team (Late st Contact Info) Description 04/08/2025 11:15 AM EDT Office Visit [facility] MEDICINE [address] [place] [address] Name, MD Shabbir [address] [facility] [place] [address] 05/02/2025 2:30 PM EDT Office Visit [facility] ADULT DENTAL 230 [place] [address] Patrick Young DDS [address] [place] [address] 05/04/2025 3:00 PM EDT Office Visit [facility] OPTOMETRY [address] [place] [address] Oneida Escobedo, OD 230 [place] [address] 08/30/2025 1:00 PM EDT Office Visit [facility] ADULT DENTAL [address] [place] [address] Aimee Sherman documented as of this encounter Visit Diagnoses Not on filedocumented in this encounter Care Teams Civil Design Technician Relationship Specialty Start Date End Date Name, MD Shabbir [address] [place] [address] PCP - General Family Medicine 02/21/16 Ciro Lilly DMD [address] [place] [address] Dental Grit Removal Operator 01/17/25 Oneida Escobedo, OD [address] [place] [address] Optometry 01/17/25 Channing Montgomery DPM [address] [place] [address] Podiatry 01/17/25 documented as of this encounter
--- OUTSIDE RECORDS SUMMARY | 2025-03-17 10:18 | XMS_ITS | Encounter Summary ---
Author Organization [employer] Address 75 [facility] 7t [place] [address] Care Team Providers Care Cell Support Operator Name Role Phone Name, Shabbir SHEPARD Primary Care Provider [phone] Ciro Lilly DMD Unavailable GreggOneida silva OD Unavailable [phone] Channing Montgomery DPM Unavailable [phone] Encounter Details Date Type Department Care Team (Late Contact Info) Description 04/28/2023 Abstract [facility] MEDICINE [address] [place] [address] Shabbir Treviño MD [address] [place] [address] [phone] Social History Tobacco Use Types Packs/Day Years Used Date Smoking Tobacco: Never Smokeless Tobacco: Never PHQ-2 Answer Date Recorded Patient Health Questionnaire-2 Score 2 12/25/2022 Depression Answer Date Recorded Patient Health Questionnaire-2 Score 2 12/25/2022 Sex and Gender Information Value Date Recorded Sex Assigned at Male 09/16/2022 10:18 AM EDT Legal Sex Male 10:18 AM EDT Gender Identity Male 09/16/2022 10:18 AM EDT Sexual Orientation Straight 09/16/2022 10 :18 AM EDT documented as of this encounter Plan of Treatment Upcoming Encounters Date Type Department Care Team (Late Contact Info) Description 04/08/2025 11:15 AM EDT Office Visit [facility] MEDICINE [address] [place] [address] [phone] Shabbir Treviño MD [address] [place] [address] [phone] 05/02/2025 2:30 PM EDT Office Visit [facility] ADULT DENTAL [address] [place] [address] Patrick Young DDS [address] [place] [address] 05/04/2025 3:00 PM EDT Office Visit [facility] OPTOMETRY [address] [place] [address] Oneida Escobedo, OD [address] [place] [address] 08/30/2025 1:00 PM EDT Office Visit [facility] ADULT DENTAL [address] [place] [address] Aimee Sherman documented as of this encounter Visit Diagnoses Not on filedocumented in this encounter Care Teams Cell Support Operator Relationship Specialty Start Date End Date Name, MD Shabbir [address] [place] [address] PCP - General Family Medicine 02/21/16 Ciro Lilly DMD [address] [place] [address] Dental Transportation Coordinator 01/17/25 Oneida Escobedo, OD [address] [place] [address] Optometry 01/17/25 Channing Montgomery DPM [address] [place] [address] Podiatry 01/17/25 documented as of this encounter
[2025-03-17 11:28] LABS: MANUAL DIFF FLAG NO
[2025-03-17 11:35] LABS: Basophils Absolute Auto 0.1 X10*3/uL (0.0-0.2); Basophils Percent Auto 0.5 % (0-2); Eosinophils Absolute Auto 0.2 X10*3/uL (0.0-0.4); Eosinophils Percent Auto 1.9 % (0-4); Hematocrit 50.4 % (42.0-52.0); Imm Gran Abs Auto 0.06 X10*3/uL (0.00-0.03); Imm Gran Pct Auto 0.6 % (0.0-0.4); Lymphocytes Absolute Auto 2.6 X10*3/uL (1.2-4.9); Mean Corpuscular HGB Conc 31.7 g/dl (31.0-36.0); Mean Corpuscular Hemoglobin 27.4 pg (27.0-33.0); Mean Corpuscular Volume 86.4 fL (80.0-98.0); Mean Platelet Volume 9.6 fL (9.4-12.4); Monocytes Absolute Auto 0.8 X10*3/uL (0.1-1.2); Monocytes Percent Auto 8.2 % (2-11); Neutrophils Absolute Auto 5.6 x10*3/uL (2.0-8.3); Neutrophils Percent Auto 60.8 % (45-73); Platelet Count 253 X10*3/uL (160-400); Red Blood Count 5.83 X10*6/uL (4.60-5.80); Red Cell Distribution Width 13.6 % (11.0-16.0); White Blood Count 9.3 X10*3/uL (4.8-10.8)
[2025-03-17 11:55] LABS: Lithium 0.32 mmol/L (0.60-1.20)
[2025-03-17 12:14] LABS: Alanine Aminotransferase 32 U/L (0-40); Albumin Level 4.5 g/dL (3.5-5.0); Alkaline Phosphatase 95 U/L (39-117); Anion Gap 13 (12-20); Aspartate Amino Transferase 24 U/L (5-37); Bilirubin Total 1.2 mg/dL (0.0-1.0); Blood Urea Nitrogen 16 mg/dL (9-16); Calcium 9.5 mg/dL (8.4-10.2); Carbon Dioxide 29 mmol/L (22-29); Chloride 102 mmol/L (96-108); Cholesterol 117 mg/dL (<200); Estimated Glomerular Filt Rate > 60; Glucose Random 109 mg/dL (60-115); HDL Cholesterol 43 mg/dL (>40); HIV AB/AG Nonreactive (Nonreactive); HIV Num 1 0.05 S/CO (0.00-0.99); LDL Cholesterol Calculated 48 mg/dL (<100); Potassium 4.1 mmol/L (3.3-5.1); Sodium 140 mmol/L (135-145); Total Protein 7.7 g/dL (6.5-8.0); Triglycerides 131 mg/dL (<150)
[2025-03-17 12:16] LABS: Prostate Specific Antigen 0.67 ng/mL (<0.05-4.0)
[2025-03-17 12:19] LABS: TSH reflex Free T4 1.38 uIU/mL (0.32-4.0)
== END 2025-03-17 09:24 | disposition home or self-care (01) ==
LOC: HO.HHCL 09:23
PROVIDERS: Internal Medicine Geriatric Medicine; Visit Provider Family Medicine
DX: I10 Essential (primary) hypertension (principal); E78.5 Hyperlipidemia, unspecified; F31.9 Bipolar disorder, unspecified; Z11.3 Encounter for screening for infections with a predominantly sexual mode of transmission; R35.1 Nocturia; Z12.5 Encounter for screening for malignant neoplasm of prostate
CPT/HCPCS: 36415; 80053; 80061; 80178; 84153; 84443; 85025; 87389

== ENCOUNTER 2025-04-24 22:01 | Emergency (ER) | payer MEDICARE, OTHER, SELFPAY ==
[2025-04-24 22:09] VITALS: BP 129/82; BP 148/88; PULSE 108; PULSE 112; RESP 18; TEMP 36.9; O2SAT 94; O2SAT 95; BMI 35.7
--- NOTE | 2025-04-24 22:31 | ED_ITS ---
HPI - General Adult General Chief complaint: ETOH/Substance Use Stated complaint: etoh Time Seen by Provider: 04/24/25 22:31 History of Present Illness ED Provider: Prashanth SALVADOR narrative: The patient is a 64-year-old male with a history of bipolar disorder on lithium who says that he was drinking heavier than usual this weekend. He says that he was at a bus stop trying to catch a bus home. He says he was approached by someone who he thought was trying to miguel him. He therefore called the police. When police arrived the police were concerned that the patient seemed significantly intoxicated and had an ambulance bring him to the hospital here. The patient denies any injuries or trauma. He denies feeling ill. He denies any thoughts of self-harm or suicide. He acknowledges that he is intoxicated. He would like to go home. He has no complaints aside from not wanting to stay in the emergency room. Related Data Home Medications ?Medication ?Instructions ?Recorded ?Confirmed albuterol sulfate 90 mcg/actuation 0 mcg inhalation 06/04/22 aerosol inhaler (Ventolin HFA) aspirin 81 mg tablet,delayed 81 mg PO DAILY 06/04/22 09/19/22 release atorvastatin 20 mg tablet 20 mg PO DAILY 06/04/22 09/19/22 bupropion HCl 75 mg tablet 75 mg PO QAM 06/04/22 09/19/22 chlorthalidone 25 mg tablet 50 mg PO DAILY 06/04/22 09/19/22 clonazepam 2 mg tablet 2 mg PO BID 06/04/22 09/19/22 lamotrigine 100 mg tablet 100 mg PO DAILY 06/04/22 09/19/22 lithium carbonate 450 mg 450 mg PO BID 06/04/22 09/19/22 tablet,extended release loratadine 10 mg tablet 10 mg PO DAILY 06/04/22 09/19/22 naproxen 500 mg tablet 500 mg PO BID PRN Pain 06/04/22 09/19/22 potassium chloride 10 mEq 10 meq PO DAILY 06/04/22 09/19/22 capsule,extended release Allergies Allergy/AdvReac Type Severity Reaction Status Date / Time dog dander [DOG] Allergy Intermediate ASTHMA Verified 04/24/25 22:11 Penicillins Allergy Mild HIVES Verified 04/24/25 22:11 ragweed pollen [RAGWEED] Allergy Unknown FROM Verified 04/24/25 22:11 ALLERGY TESTING SEASONAL ALLERGIES Allergy Intermediate ASTHMA Uncoded 12/26/22 14:34 COCKROACHES Allergy Unknown FROM Uncoded 08/03/20 14:41 ALLERGY TESTING Review of Systems Review of Systems: Yes all other systems are reviewed and are negative [facility] Past Medical History Medical History (Updated 04/25/25 @ 00:00 by Ananda Duarte) GERD (gastroesophageal reflux disease) History of vertigo Anxiety CKD (chronic kidney disease), stage III THERESA (obstructive sleep apnea) Hepatitis C antibody positive in blood HTN (hypertension) Asthma Hyperlipidemia Bipolar 1 disorder Hx of pancreatitis Surgical History (Updated 09/19/22 @ 14:52 by Estrellita Caruso RN) History of arthroscopy of right knee Hx of colonoscopy History of appendectomy Family History Family History (Updated 06/04/22 @ 08:15 by Marvin Nolan) Mother HTN (hypertension) Social History Social History (Updated 06/04/22 @ 08:14 by Marvin Nolan) Household Members: Other Alcohol intake: current Patient Tobacco Use Status: Never used Tobacco Advance Directives: No Advance Directives Information Provided: No Do you have a plan to hurt others: No Plan Physical Exam ED Vital Signs: Vital Signs - 24 hr 04/24/25 22:09 04/24/25 23:07 Temperature 98.4 F 98.4 F Pulse Rate 112 H 112 H Respiratory Rate 18 18 Blood Pressure 129/82 129/82 Pulse Oximetry 94 94 Oxygen Delivery Method Room Air Room Air BMI result Body Mass Index 35.7 Const Other: The patient is a 64-year-old male who was awake and alert. He seemed intoxicated. He did not seem in acute distress. There were no signs of injury. HENMT Other: Face is symmetrical, mucous membranes moist. Eyes General: appearance normal, both eyes and all related structures Periorbital: periorbital findings normal Eyelids: Yes eyelids normal Conjunctivae: conjunctivae normal Corneas: corneas normal Pupils: Equal, round and reactive pupils present Neck Neck: Yes normal visual inspection and Yes full ROM Resp Effort & Inspection: normal respiratory effort Auscultation: clear to auscultation bilaterally Cardio Rate: tachycardic Rhythm: regular rhythm Heart sounds: S1 normal heart sound present and S2 normal heart sound present GI Other: The patient has a large abdomen. It was soft and nontender. Skin Other: Skin was dry and unremarkable. Neuro Other: The patient was awake and alert. He was extremely talkative. His demeanor suggested alcohol intoxication. Cranial nerves are grossly intact. He moves his extremities normally. He seems reasonably steady on his feet. Cranial nerves: Yes Equal, round and reactive pupils present Extrem Other: No deformities to the extremities. No signs of trauma. Medical Decision Making Medical Decision Making MDM Narrative: The patient is a 64-year-old male who was brought to the hospital by ambulance at the request of police. Apparently the patient had been at a local bus station and seemed significantly intoxicated. The patient says he had not wished to come here he simply wanted to go home. He says that he has a history of bipolar disorder in his on lithium but he is not suicidal or homicidal. I felt the patient was reasonably steady on his feet. I did not see that there were any definite grounds to hold him against his will. Arrangements were made for an [facility] taxi to pick him up. He was then discharged to follow up with his regular doctor. He was advised to be careful with alcohol in the future. Discharge Plan Discharge Clinical Impression: Alcoholic intoxication Patient Disposition: Home, Self-Care Additional Instructions: Please be causreul with alcohol in the future. Please follow-up with your regular doctor soon. Return to the emergency room if you feel significantly worse. Prescriptions: No Action lamotrigine 100 mg tablet 100 mg PO DAILY bupropion HCl 75 mg tablet 75 mg PO QAM atorvastatin 20 mg tablet 20 mg PO DAILY potassium chloride 10 mEq capsule, extended release 10 meq PO DAILY lithium carbonate 450 mg tablet extended release 450 mg PO BID chlorthalidone 25 mg tablet 50 mg PO DAILY clonazepam 2 mg tablet 2 mg PO BID naproxen 500 mg tablet 500 mg PO BID PRN (Reason: Pain) albuterol sulfate [Ventolin HFA] 90 mcg/actuation HFA aerosol inhaler 0 mcg inhalation aspirin 81 mg tablet,delayed release (DR/EC) 81 mg PO DAILY loratadine 10 mg tablet 10 mg PO DAILY Referrals: Name,MD Shabbir [Physician] - (Alcohol intoxication) Interventions: ED Discharge Assessment Last Done: 04/24/25 23:07 Discharge Date/Time: 04/24/25 23:07 Print Language: Tajik
--- NOTE | 2025-04-24 22:36 | PC.NURSE ---
Addendum entered by Mk Wilson RN 04/24/25 22:38: MD at bedside. pt rambling, disorganized thoughts about circumstances leading to arrival. Original Note: pt states he has been on a jimenez since friday. normally I'm not like this but shit happens. pt denies SI/HI. loud, disruptive, slurring words, unsteady on feet. making vague threatening comment about how he'd react if not allowed to leave.
--- OUTSIDE RECORDS SUMMARY | 2025-04-24 23:06 | XMS_ITS | Clinical Summary ---
Author Organization [employer] Address [address] [place] [address] Care Team Providers Care Heading Machine Operator Name Role Phone Name, Shabbir SHEPARD Primary Care Provider [phone] Ciro Lilly DMD Unavailable GreggOneida silva OD Unavailable [phone] Channing Montgomery DPM Unavailable [phone] Allergies Active Allergy Reactions Criticality Noted Date Comments Austrian Cockroach 08/25/2024 Hives and agioedema Penicillin V High 11/01/2013 Other reaction(s): itchiness Medications sildenafil (Viagra) 50 MG tablet 07/17/20 22 Active albuterol 108 (90 Base) MCG/ACT inhaler 03/05/20 22 Active EPINEPHrine (Epipen) 0.3 MG/0.3ML injection syringe 02/11/20 20 Active albuterol (2.5 MG/3ML) 0.083% nebulizer solutionIndica tions:Cough in adult Take 3 mL (2.5 mg) by nebulization every 6 (six) hours if needed for wheezing. 75 mL 2 11/24/19 25 Active Aspirin Low Dose 81 MG EC tablet TAKE 1 TABLET BY MOUTH EVERY DAY 90 tablet 3 12/01/19 25 Active ibuprofen 800 MG tabletIndicati ons:Anterior knee pain, unspecified laterality TAKE 1 TABLET BY MOUTH THREE TIMES DAILY WITH FOOD NEEDED FOR MILD OR MODERATE PAIN 90 tablet 01/12/20 25 Active atorvastatin (Lipitor) 20 MG tablet Take 1 tablet (20 mg) by mouth Once per day. 90 tablet 3 04/08/20 25 Active potassium chloride ER (Micro-K) 10 MEQ ER capsule TAKE 1 CAPSULE BY MOUTH EVERY DAY WITH FOOD 30 capsule 04/08/20 Active lithium ER (Eskalith) 450 MG 12 hr tablet Take 1 tablet (450 mg) by mouth Once per day. Do not crush, chew, or split. 180 tablet 3 04/08/20 Active lamoTRIgine (LaMICtal) 100 MG tablet Take 1 tablet (100 mg) by mouth Once per day. 90 tablet 5 04/08/20 Active furosemide (Lasix) 20 MG tablet Take 1 tablet (20 mg) by mouth Once per day. 30 tablet 2 04/08/20 25 2024 Active buPROPion (Wellbutrin) 75 MG tablet Take 1 tablet (75 mg) by mouth Once per day. 90 tablet 04/08/20 Active clonazePAM (KlonoPIN) 2 MG tabletIndicati ons:Anxiety Take 1 tablet (2 mg) by mouth if needed in the morning and at bedtime for anxiety. 56 tablet 04/08/20 Active lamoTRIgine (LaMICtal) 100 MG tablet TAKE 1 TABLET BY MOUTH EVERY DAY 90 tablet 5 07/28/20 24 2024 Discontinued(R eorder (will not trigger notification to Pharmacy)) buPROPion (Wellbutrin) 75 MG tablet TAKE 1 TABLET BY MOUTH DAILY IN THE MORNING 90 tablet 5 07/28/20 24 2024 Discontinued(R eorder (will not trigger notification to Pharmacy)) lithium ER (Eskalith) 450 MG 12 hr tablet TAKE 1 TABLET BY MOUTH EVERY DAY 180 tablet 07/28/20 24 2024 Discontinued(R eorder (will not trigger notification to Pharmacy)) atorvastatin (Lipitor) 20 MG tablet TAKE 1 TABLET BY MOUTH EVERY DAY 90 tablet 3 07/28/20 24 2024 Discontinued(R eorder (will not trigger notification to Pharmacy)) potassium chloride ER (Micro-K) 10 MEQ ER capsule TAKE 1 CAPSULE BY MOUTH EVERY DAY WITH FOOD 30 capsule 09/23/20 24 2024 Discontinued(R eorder (will not trigger notification to Pharmacy)) clonazePAM (KlonoPIN) 2 MG tabletIndicati ons:Anxiety TAKE 1 TABLET BY MOUTH TWICE DAILY FOR 28 DAYS 56 tablet 03/10/20 25 2024 Discontinued(R eorder (will not trigger notification to Pharmacy)) furosemide (Lasix) 20 MG tablet TAKE 1 TABLET BY MOUTH ONCE DAILY NEEDED FOR leg swelling 30 tablet 2 03/24/20 25 2024 Discontinued(R eorder (will not trigger notification to Pharmacy)) Active Problems Problem Noted Date Diagnosed Date [...] Encounters Date Type Department Care Team Description 04/08/2025 11:15 AM EDT Office Visit [facility] [address] [place] [address] Name, MD Shabbir Hypertension, unspecified type (Primary Dx); Anxiety 04/08/2025 Travel 04/07/2025 Telephone [facility] [address] [place] [address] Lesly Lorenzo MA Chart Prep 03/23/2025 Refill [facility] [address] [place] [address] Shabbir Treviño MD 03/17/2025 10:00 AM EDT Office Visit [facility] ADULT DENTAL [address] [place] [address] SamuelallanCiroBHARAT 03/10/2025 Telephone [facility] [address] [place] [address] Shabbir Treviño MD Med Refill 03/04/2025 Refill [facility] [address] [place] [address] Shabbir Treviño MD Anxiety 02/28/2025 Refill [facility] [address] [place], [place] [phone] NameShabbir MD Anxiety 02/22/2025 1:00 PM EDT Office Visit [facility] AD[facility] [address] [place] [address] Aimee Sherman 01/28/2025 Population Health Risk Score [facility] () Department [address] [place] [phone] Provider, Population Health Generic 01/26/2025 Refill [facility] [address] [place] [address] Shabbir Treviño MD Anxiety from Last 3 Months Immunizations Immunization Administration Dates Next Due Hep A, Adult [...] Sign Reading Time Taken Comments Blood Pressure 142/64 04/08/2025 11:20 AM EDT Pulse 84 04/08/2025 11:20 AM EDT Temperature 36.1 ??C (96.9 ??F) 04/08/2025 11:20 AM E DT Respiratory Rate 18 04/08/2025 11:20 AM EDT Oxygen Saturation 96% 04/08/2025 11:20 AM EDT Inhaled Oxygen Concentration - - Weight 117 kg (258 lb 3.2 oz) 04/08/2025 11:20 A M EDT Height 180.3 cm (5' 11 ) 04/08/2025 11:20 AM EDT Body Mass Index 36.01 04/08/2025 11:20 AM EDT Plan of Treatment Upcoming Encounters Date Type Department Care Team (Late st Contact Info) Description 05/02/2025 2:30 PM EDT Office Visit [facility] ADULT DENT[facility] [address] [place] [address] Patrick Young DDS [address] [place] [address] 05/04/2025 3:00 PM EDT Office Visit [facility] OPTOMETRY [address] [place] [address] Oneida Escobedo, OD [address] [place] [address] 08/30/2025 1:00 PM EDT Office Visit [facility] [address] [place] [address] Aimee Sherman Health Maintenance Due Date Last [...] Colonoscopy 03/08/2019 03/08/2014 Colorectal Cancer Screening 03/08/2019 COVID-19 Vaccine ( season) 2025 08/25/2024, 12/25/2022, 08/20/2022, Additional history exists Depression Monitoring 07/12/2025 01/12/2025, 025 Dental Oral Exam 08/25/2025 02/22/2025, 08/2023, 10/28/2019, Additional history exists Dental Prophylaxis 08/25/2025 02/22/2025, 1 11/26/2022, 10/28/2019, Additional history exists Alcohol/Substance Use Screening 01/17/2026 01/17/2025 SDOH Screening 01/17/2026 01/17/2025 Dental X-Ray: Bitewings 02/23/2026 02/23/20 25, 09/26/2023, 10/28/2019, Additional history exists Tobacco Screening 04/08/2026 04/08/2025 Dental X-Ray: Full Mouth 09/27/2026 023, 10/28/2019, 02/26/2016 Lipid Panel 03/17/2030 03/17/2025, 03/2024, 06/11/2022, Additional history exists DTaP/Tdap/Td Vaccines (3 - Td or Tdap) 02/24/2034 02/25/2024, 12/02/2013 Hepatitis A Vaccines Completed 06/17/2016, 12/14/19 Pneumococcal Vaccine: 50+ Years Completed 07/11/2023 Zoster Vaccines Completed 09/15/2023, 07/16/2023 Influenza Vaccine Completed 08/25/2024, , 08/08/2022, Additional [...] PROCEDURE Routine 03/17/2025 1 0:00 AM EDT HIV 1/2 ANTIGEN/ANTIBODY, FOURTH GENERATION W/RFL Routine 03/17/2025 9:26 AM EDT Screen for sexually transmitted diseases PSA, TOTAL Routine 03/17/2025 9:26 AM EDT Nocturia LITHIUM Routine 03/17/2025 9:26 AM EDT Bipolar I disorder (CMS/HCC) TSH W/REFLEX TO FT4 Routine 03/17/2025 9 :26 AM EDT Bipolar I disorder (CMS/HCC) LIPID PANEL, STANDARD Routine 03/17/2025 9:26 AM EDT Hyperlipidemia, unspecified hyperlipidemia type COMPREHENSIVE METABOLIC PANEL Routine 03/17/2025 9:26 AM EDT Hypertension, unspecified type CBC WITH AUTO DIFFERENTIAL Routine 03/17/2025 9:26 AM EDT Hypertension, unspecified type PERIODIC ORAL EVALUATION - ESTABLISHED PATIENT Routine [...] Routine 02/22/2025 1:00 PM EDT INTRAORAL - COMPLETE SERIES OF RADIOGRAPHIC IMAGES Routine 09/26/2023 1:00 PM EST HM COLONOSCOPY Routine 03/08/2014 from Last 3 Months or Most Recently Relevant to Health Maintenance Results * TSH W/Reflex to FT4 (03/17/2025 9:26 AM EDT) TSH reflex Free T4 1.38 0.32 - 4.0 uIU/mL [facility] Blood Venous blood specimen / Unknown 03/17/2025 9:26 AM EDT 03/17/2025 11:23 AM EDT us Shabbir Treviño MD LAB BLOOD ORDERABLES Final Resul t [facility] [address] [place] [phone] * (ABNORMAL) CBC auto differential (03/17/2025 9:26 AM EDT) White Blood Count 9.3 4.8 - 10.8 X10*3/uL [facility] Red Blood Count 5.83(H) 4.60 - 5.80 X10*6/uL [facility] Hemoglobin 16.0 14.0 - 18.0 g/dl [facility] Hematocrit 50.4 42.0 - 52.0 % [facility] Mean Corpuscular Volume 86.4 80.0 - 98.0 fL [facility] Mean Corpuscular Hemoglobin 27.4 27.0 - 33.0 pg [facility] Mean Corpuscular HGB Conc 31.7 31.0 - 36.0 g/dl [facility] Red Cell Distribution Width 13.6 11.0 - 16.0 % [facility] Platelet Count 253 160 - 400 X10*3/uL [facility] Mean Platelet Volume 9.6 9.4 - 12.4 fL [facility] Neutrophils Percent Auto 60.8 45 - 73 % [facility] Imm Gran Pct Auto 0.6(H) 0.0 - 0.4 % [facility] Lymphocytes Percent Auto 28.0 20 - 40 % [facility] Monocytes Percent Auto 8.2 2 - 11 % [facility] Eosinophils Percent Auto 1.9 0 - 4 % [facility] Basophils Percent Auto 0.5 0 - 2 % [facility] NRBC Pct Auto 0.0 0.0 - 0.2 /100WBC [facility] Neutrophils Absolute Auto 5.6 2.0 - 8.3 x10*3/uL [facility] Imm Gran Abs Auto 0.06(H) 0.00 - 0.03 X10*3/uL [facility] Lymphocytes Absolute Auto 2.6 1.2 - 4.9 X10*3/uL [facility] Monocytes Absolute Auto 0.8 0.1 - 1.2 X10*3/uL [facility] Eosinophils Absolute Auto 0.2 0.0 - 0.4 X10*3/uL [facility] Basophils Absolute Auto 0.1 0.0 - 0.2 X10*3/uL [facility] NRBC Abs Auto 0.000 0.0 - 0.012 X10*3/uL [facility] Blood Venous blood specimen / Unknown 03/17/2025 9:26 AM EDT 03/17/2025 11:23 AM EDT us hSabbir Treviño MD LAB BLOOD ORDERABLES Final Resul t [facility] [address] [place] [phone] * HIV-1/2 Antigen and Antibodies, Fourth Generation, with Reflexes (03/17/2025 9:26 AM EDT) [facility] HIV AB/AG Nonreactive Nonreactive [facility] Comment:HIV-1 p24 Ag and/or HIV-1/HIV-2 Ab not detected.A test result that is nonreactive does not exclude thepossibility of exposure to or infection with HIV-1 and/orHIV-2. Nonreactive results in this assay for individualswith prior exposure to HIV-1 and/or HIV-2 may be due toantigen and antibody levels that are below the limit ofdetection of this assay.The YUPP[employer] HIV Ag/Ab Combo assay result andsupplemental assay results should be interpreted inconjunction with the patient's clinical presentation,history and other laboratory results. If the results areinconsistent with clinical evidence, additional testing issuggested to confirm the result. Blood Venous blood specimen / Unknown 03/17/2025 9:26 AM EDT 03/17/2025 11:23 AM EDT Pallavi Mead MD LAB BLOOD ORDERABLES Final R esult Performing Organization Address City/[facility]/ZIP Co de Phone Number [facility] [address] [place] [phone] * PSA,Total (03/17/2025 9:26 AM EDT) [facility] Prostate Specific Antigen 0.67 <0.05 - 4.0 ng/mL [facility] Comment:PSA methodology: Lamonte Mccullough i ChemiluminescentMicroparticle Immunoassay (CMIA) Blood Venous blood specimen / Unknown 03/17/2025 9:26 AM EDT 03/17/2025 11:23 AM EDT Shabbir Treviño MD LAB BLOOD ORDERABLES Final Resul t Performing Organization Address City/[facility]/ZIP Co de Phone Number [facility] [address] [place] [phone] * (ABNORMAL) [place] (03/17/2025 9:26 AM EDT) [facility] [place] 0.32(L) 0.60 - 1.20 mmol/L [facility] Blood Venous blood specimen / Unknown 03/17/2025 9:26 AM EDT 03/17/2025 11:23 AM EDT us Shabbir Treviño MD LAB BLOOD ORDERABLES Final Resul t Performing Organization Address [facility] de Phone Number [facility] [address] [place] [phone] * Lipid Panel, Standard (03/17/2025 9:26 AM EDT) Triglycerides 131 <150 mg/dL [facility] Comment:Desirable Triglyceri de: less than 150 mg/dLBorderline High Triglyceride 150-199 mg/dLHigh Triglyceride: 200-499 mg/dLVery High Triglyceride: greater than or equal to 5OO mg/dL Cholesterol 117 <200 mg/dL [facility] Comment:Desirable Cholestero l: less than 200 mg/dLBorderline High Cholesterol: 200-239 mg/dLHigh Cholesterol: greater than 239 mg/dL LDL Cholesterol Calculated 48 <100 mg/dL [facility] Comment:Desirable LDL: less than 100 mg/dLNear Optimal/Above Optimal LDL: 110- 129 mg/dLBorderline High LDL: 130-159 mg/dLHigh LDL: 160-189 mg/dLVery High LDL: greater than or equal to 190 mg/dL HDL Cholesterol 43 >40 mg/dL [facility] Comment:Desirable HDL: great er than 40 mg/dL Note: This HDL assay may give artificially low results in patients with liver disease. Blood Venous blood specimen / Unknown 03/17/2025 9:26 AM EDT 03/17/2025 11:23 AM EDT us Shabbir Treviño MD LAB BLOOD ORDERABLES Final Resul t Performing Organization Address [facility]/ZIP Co de Phone Number [facility] [address] [place] [phone] * (ABNORMAL) Comprehensive Metabolic Panel (03/17/2025 9:26 AM EDT) Sodium 140 135 - 145 mmol/L [facility] Potassium 4.1 3.3 - 5.1 mmol/L [facility] Chloride 102 96 - 108 mmol/L [facility] Carbon Dioxide 29 22 - 29 mmol/L [facility] Anion Gap 13 12 - 20 [facility] Urea Nitrogen (BUN) 16 9 - 16 mg/dL [facility] Creatinine, Serum 1.11 0.5 - 1.4 mg/dL [facility] Estimated Glomerular Filt Rate >60 [facility] Comment:Chronic Kidney Disea se: Estimated GFR < 60 mL/min/[id number] Kidney Disease: Estimated GFR < 15 mL/min/1.73m2 Glucose 109 60 - 115 mg/dL [facility] Calcium 9.5 8.4 - 10.2 mg/dL [facility] Bilirubin, Total 1.2(H) 0.0 - 1.0 mg/dL [facility] Aspartate Amino Transferase 24 5 - 37 U/L [facility] Alanine Aminotransferase 32 0 - 40 U/L [facility] Total Protein 7.7 6.5 - 8.0 g/dL [facility] Albumin Level 4.5 3.5 - 5.0 g/dL [facility] Alkaline Phosphatase 95 39 - 117 U/L [facility] Blood Venous blood specimen / Unknown 03/17/2025 9:26 AM EDT 03/17/2025 11:23 AM EDT Shabbir Treviño MD LAB BLOOD ORDERABLES Final Resul t [facility] [address] [place] [address] [phone] * (ABNORMAL) Colonoscopy (03/08/2014) Colonoscopy Abnormal(A ) Normal [facility] External Provider HEALTH MAINTENANCE Final Result from Last 3 Months or Most Recently Relevant to Health Maintenance Insurance MEDICARE [facility] FULL (MEDICAID) Care Teams Heading Machine Operator Relationship Specialty Start Date End Date Name, MD Shabbir [address] [place] [address] PCP - General Family Medicine 02/21/16 Ciro Lilly DMD [address] [place], [place] [phone] Dental Mixer Operator Raw Salt 01/17/25 Oneida Escobedo OD [address] [place], [place] [phone] Optometry 01/17/25 Channing Montgomery DPM [address] [phone] Podiatry 01/17/25
[2025-04-24 23:07] VITALS: BP 129/82; PULSE 112; RESP 18; TEMP 36.9; O2SAT 94
--- NOTE | 2025-04-24 23:11 | PC.NURSE ---
pt able to ve verbally deescalated. food/fluids provided. ambulated steadily without assist to exit. visualized patient get into uber ride to home address. aware
== END 2025-04-24 23:07 | disposition home or self-care (01) ==
PROVIDERS: Emergency Provider Emergency Medicine
DX: F10.220 Alcohol dependence with intoxication, uncomplicated (principal); Y90.9 Presence of alcohol in blood, level not specified
CPT/HCPCS: 99282

== ENCOUNTER 2025-08-02 00:33 | Emergency (ER) | payer MEDICARE, MEDICAID, SELFPAY ==
--- NOTE | 2025-08-02 | ECG_ITS ---
Test Reason : CHEST PAIN Blood Pressure : */* mmHG Vent. Rate : 73 BPM Atrial Rate : 73 BPM P-R Int : 194 ms QRS Dur : 108 ms QT Int : 410 ms P-R-T Axes : -15 -13 59 degrees QTcB Int : 451 ms Normal sinus rhythm Normal ECG When compared with ECG of 24-Nov-2017 10:33, No significant changes seen Referred By: Kojo Ambriz Electronically Signed By: OLE ROGERS
--- NOTE | ~2025-08-02 | CT_ITS ---
CLINICAL HISTORY: FALL, HEAD STRIKE CT head without contrast Comparison: None provided Findings: No intra-axial mass, midline shift, hydrocephalus, or acute hemorrhage. Mild volume loss and minimal low-density in the periventricular white matter. Tubular high density structure extending from the posterior left lateral ventricle to the cortical surface of the left parietal lobe, axial 50 and coronal 116. There is no sinus or mastoid fluid. The orbits are within normal limits. There is opacification of the right maxillary sinus with atelectasis. IMPRESSION: 1. No acute intracranial findings. 2. Incidental developmental venous anomaly, left parietal region, coronal 116. This document has been electronically signed by: Galileo Schroeder MD on 08/02/2025 05:52:00
--- NOTE | ~2025-08-02 | CT_ITS ---
CLINICAL HISTORY: FALL, HEAD STRIKE CT cervical spine without contrast Comparison: None Findings: There is straightening of the normal cervical lordosis. No fracture or acute malalignment. Multilevel degenerative changes with disc space narrowing throughout the cervical spine, bulky bridging osteophytes and endplate sclerosis. The facet joints are normally imbricated. No prevertebral soft tissue edema. Lung apicies demonstrate no acute process. Impression: Multilevel degenerative changes without evidence of acute fracture or acute malalignment. This document has been electronically signed by: Galileo Schroeder MD on 08/02/2025 06:08:06
--- NOTE | ~2025-08-02 | CT_ITS ---
CLINICAL HISTORY: Fall; Facial Trauma; EtOH CT maxillofacial without contrast Comparison: None provided Findings: Age-indeterminate nasal bone fracture. Temporomandibular joints are intact. Opacification of the right maxillary sinus with atelectasis. Unremarkable orbital contents. Visualized intracranial contents are within normal limits. No foreign bodies. IMPRESSION: Age-indeterminate nasal bone fracture. Right maxillary sinus disease. This document has been electronically signed by: Galileo Schroeder MD on 08/02/2025 05:57:32
[2025-08-02 00:50] VITALS: BP 118/76; PULSE 108; O2SAT 97
[2025-08-02 00:56] VITALS: BP 136/79; PULSE 84; RESP 17; TEMP 36.7; O2SAT 95; BMI 34.5
[2025-08-02 01:10] VITALS: BP 136/79; PULSE 84; RESP 17; TEMP 36.7; O2SAT 95
--- NOTE | 2025-08-02 01:17 | ED_ITS ---
HPI - Fall General Chief Complaint: Fall Stated Complaint: fall, no LOC Time Seen by Provider: 08/02/25 01:13 Source: patient Mode of arrival: ambulatory Limitations: no limitations History of Present Illness ED Provider: Kojo DALE HPI Narrative: The patient is a 65-year-old male with a history of bipolar disorder presenting to the ED via EMS for evaluation of a fall while intoxicated. Patient admits to drinking alcohol today, and tripping over a curb. Patient reports he suffered the of his best friend 1 month ago, and has been drinking 12 alcoholic drinks daily since his . The patient reports he has been experiencing severe depression over the past month, with recurrent suicidal ideation but without reported attempt. The patient reports he has multiple plans of how to harm himself but has not carried any out due to their complexity, or fear that his family would have to clean up the mess?. The patient denies any acute somatic complaint however is clinically intoxicated and reliability is questionable, patient noted to have abrasions to the right elbow and an abrasion with a hematoma noted to the right forehead. The patient denies associated recreational drug use. Related Data Home Medications ?Medication ?Instructions ?Recorded ?Confirmed albuterol sulfate 90 mcg/actuation 0 mcg inhalation aerosol inhaler (Ventolin HFA) aspirin 81 mg tablet,delayed 81 mg PO DAILY 06/04/22 1 11/19/21 release atorvastatin 20 mg tablet 20 mg PO DAILY 06/04/2202/05 bupropion HCl 75 mg tablet 75 mg PO QAM 06/04/2209/19 chlorthalidone 25 mg tablet 50 mg PO DAILY 06/04/22 clonazepam 2 mg tablet 2 mg PO BID 06/04/22 2 lamotrigine 100 mg tablet 100 mg PO DAILY 06/04/2202/05 lithium carbonate 450 mg 450 mg PO BID 06/04/2209/19 tablet,extended release loratadine 10 mg tablet 10 mg PO DAILY 06/04/2202/05 naproxen 500 mg tablet 500 mg PO BID PRN Pain 06/0409/19/22 potassium chloride 10 mEq 10 meq PO DAILY 06/04/2202/05 capsule,extended release Allergies Allergy/AdvReac Type Severity Reaction Status Date / Time dog dander (DOG) Allergy Intermediate ASTHMA Verified 08/02/25 00:57 Penicillins Allergy Mild HIVES Verified 04/24/25 22:11 ragweed pollen (RAGWEED) Allergy Unknown FROM Verified 08/02/25 00:57 ALLERGY TESTING SEASONAL ALLERGIES Allergy Intermediate ASTHMA Uncoded 08/02/25 00:57 COCKROACHES Allergy Unknown FROM Uncoded 08/02/25 00:57 ALLERGY TESTING Review of Systems 2 Review of Systems: Yes all other systems are reviewed and are negative [facility] Past Medical History Medical History (Updated 08/02/25 @ 10:27 by Jaqui Gibbs DO) GERD (gastroesophageal reflux disease) History of vertigo Anxiety CKD (chronic kidney disease), stage III THERESA (obstructive sleep apnea) Hepatitis C antibody positive in blood HTN (hypertension) Asthma Hyperlipidemia Bipolar 1 disorder Hx of pancreatitis Surgical History (Updated 09/19/22 @ 14:52 by Estrellita Caruso RN) History of arthroscopy of right knee Hx of colonoscopy History of appendectomy Family History Family History (Updated 06/04/22 @ 08:15 by Marvin Nolan) Mother HTN (hypertension) Social History Social History (Updated 06/04/22 @ 08:14 by Marvin Nolan) Household Members: Other Alcohol intake: current Alcohol type: hard liquor Patient Tobacco Use Status: Never used Tobacco Smoked in Last 30 Days: No Use of substances other than those prescribed or required for medical reasons: No Advance Directives: No Advance Directives Information Provided: Yes Do you have a plan to hurt others: No Plan Physical Exam 2 Vital Signs: Vital Signs: Last Vital Signs Temp 97.6 F 08/02/25 06:00 Pulse 94 08/02/25 08:18 Resp 18 08/02/25 08:18 BP 147/80 H 08/02/25 08:18 Pulse Ox 96 08/02/25 08:18 O2 Del Method Room Air 08/02/25 08:18 BMI result Body Mass Index 34.5 Course Course Course Narrative: Time: 10:24 Date: 08/02/25 Provider: Jaqui Gibbs DO Physician observation ended at 1024am. Patient has been cleared for discharge by the CARE team. Will follow up as an outpatient. Medications Administered Discontinued Medications Generic Name Dose Route Start Last Admin Trade Name Freq PRN Reason Stop Dose Admin Ketorolac Tromethamine 30 mg 08/02/25 04:29 08/02/25 04:42 Ketorolac Tromethamine 30 Mg/Ml Vial IM 08/02/25 04:30 30 mg ONCE ONE Administration Medical Decision Making Medical Decision Making [facility] Narrative: 1:41 AM 08/02/2025 (Helena DALE): The patient is a 65-year-old male with a history of bipolar disorder presenting to the ED via EMS for evaluation of a fall while intoxicated. Patient admits to drinking alcohol today, and tripping over a curb. Patient reports he suffered the of his best friend 1 month ago, and has been drinking 12 alcoholic drinks daily since his . The patient reports he has been experiencing severe depression over the past month, with recurrent suicidal ideation but without reported attempt. The patient reports he has multiple plans of how to harm himself but has not carried any out due to their complexity, or fear that his family would have to clean up the mess?. The patient denies any acute somatic complaint however is clinically intoxicated and reliability is questionable, patient noted to have abrasions to the right elbow and an abrasion with a hematoma noted to the right forehead. The patient denies associated recreational drug use. The patient appears clinically intoxicated, odor of EtOH metabolites on breath, arrives in cervical collar with abrasions to the right arm and abrasion with hematoma to the right forehead. Patient will be evaluated with CT head, neck, and face, as well as laboratory evaluation to facilitate medical clearance for crisis evaluation. 6:14 AM 08/02/2025 (Helena DALE): Patient's CT head, neck, and face came back with no acute traumatic injury. The patient's cervical collar was removed. Patient is medically cleared for crisis evaluation. Admission/Observation Consideration of admission/observation: Escalation of care including admission/observation considered Lab Data [facility] Lab Attestation statement: I reviewed the patient's lab results. 08/02/25 01:24 08/02/25 01:24 Labs: Lab Results 08/02/25 Range/Units 01:24 WBC 9.4 (4.8-10.8) X10*3/uL RBC 5.80 (4.60-5.80) X10*6/uL Hgb 16.4 (14.0-18.0) g/dl Hct 49.0 (42.0-52.0) % MCV 84.5 (80.0-98.0) fL MCH 28.3 (27.0-33.0) pg MCHC 33.5 (31.0-36.0) g/dl RDW 14.4 (11.0-16.0) % Plt Count 199 (160-400) X10*3/uL MPV 8.7 L (9.4-12.4) fL Immature Gran % (Auto) 1.1 H (0.0-0.4) % Neut % (Auto) 60.6 (45-73) % Lymph % (Auto) 27.8 (20-40) % Potter % (Auto) 6.8 (2-11) % Eos % (Auto) 2.8 (0-4) % Baso % (Auto) 0.9 (0-2) % Lymph # (Auto) 2.6 (1.2-4.9) X10*3/uL Potter # (Auto) 0.6 (0.1-1.2) X10*3/uL Eos # (Auto) 0.3 (0.0-0.4) X10*3/uL Baso # (Auto) 0.1 (0.0-0.2) X10*3/uL Abs Immat Gran (auto) 0.10 H (0.00-0.03) X10*3/uL Absolute Neuts (auto) 5.7 (2.0-8.3) x10*3/uL Absolute Nucleated RBC 0.000 (0.0-0.012) X10*3/uL Nucleated RBC % (auto) 0.0 (0.0-0.2) /100WBC Sodium 146 H (135-145) mmol/L Potassium 4.3 (3.3-5.1) mmol/L Chloride 113 H (96-108) mmol/L Carbon Dioxide 22 (22-29) mmol/L Anion Gap 15 (12-20) BUN 14 (9-16) mg/dL Creatinine 0.99 (0.5-1.4) mg/dL Estim Creat Clear Calc 94.9 Estimated GFR > 60 Random Glucose 91 (60-115) mg/dL Calcium 8.6 D (8.4-10.2) mg/dL Total Bilirubin 0.6 (0.0-1.0) mg/dL AST 46 H (5-37) U/L ALT 54 H (0-40) U/L Alkaline Phosphatase 88 (39-117) U/L Total Protein 7.8 (6.5-8.0) g/dL Albumin 4.6 (3.5-5.0) g/dL Salicylates < 5.0 L (15-30) mg/dL Acetaminophen < 3 (<30) mcg/mL Ethyl Alcohol 324 H* mg/dL Radiology Impression Discussion of test interpretation with radiology: I have reviewed the radiologist's reading. Radiologist Impression: CLINICAL HISTORY: FALL, HEAD STRIKE CT cervical spine without contrast Comparison: None Findings: There is straightening of the normal cervical lordosis. No fracture or acute malalignment. Multilevel degenerative changes with disc space narrowing throughout the cervical spine, bulky bridging osteophytes and endplate sclerosis. The facet joints are normally imbricated. No prevertebral soft tissue edema. Lung apicies demonstrate no acute process. Impression: Multilevel degenerative changes without evidence of acute fracture or acute malalignment. This document has been electronically signed by: Galileo Schroeder MD on 08/02/2025 06:08:06 Reason for Exam: Fall; Facial Trauma; EtOH CLINICAL HISTORY: Fall; Facial Trauma; EtOH CT maxillofacial without contrast Comparison: None provided Findings: Age-indeterminate nasal bone fracture. Temporomandibular joints are intact. Opacification of the right maxillary sinus with atelectasis. Unremarkable orbital contents. Visualized intracranial contents are within normal limits. No foreign bodies. IMPRESSION: Age-indeterminate nasal bone fracture. Right maxillary sinus disease. This document has been electronically signed by: Galileo Schroeder MD on 08/02/2025 05:57:32 CLINICAL HISTORY: FALL, HEAD STRIKE CT head without contrast Comparison: None provided Findings: No intra-axial mass, midline shift, hydrocephalus, or acute hemorrhage. Mild volume loss and minimal low-density in the periventricular white matter. Tubular high density structure extending from the posterior left lateral ventricle to the cortical surface of the left parietal lobe, axial 50 and coronal 116. There is no sinus or mastoid fluid. The orbits are within normal limits. There is opacification of the right maxillary sinus with atelectasis. IMPRESSION: 1. No acute intracranial findings. 2. Incidental developmental venous anomaly, left parietal region, coronal 116. This document has been electronically signed by: Galileo Schroeder MD on 08/02/2025 05:52:00 External Record Review External record reviewed: Outpatient record Discharge Plan Discharge Clinical Impression: Abrasion Alcohol intoxication Qualifiers: Complication of substance-induced condition: with unspecified complication Q ualified Code(s): F10.929 - Alcohol use, unspecified with intoxication, unspecified Patient Disposition: Home, Self-Care Instructions: Alcohol Intoxication (ED), Abrasion (ED) Additional Instructions: your labs were reassuring other than high ETOH level your CT scans were normal other than age indeterminate nasal bone fracture if you have swelling, pain, bleeding or signs that your nose appears crooked please follow up with ENT stay with responsible adult IMPRESSION: Age-indeterminate nasal bone fracture. Right maxillary sinus disease. Alcohol use disorder You were seen in the Emergency Department today for treatment of alcohol use disorder.? You may have been given medications to help with your withdrawal symptoms.? Please do not drink alcohol with them. This is very dangerous and can cause respiratory depression or other adverse reactions depending on the medication. If you would like to cut down or stop your alcohol use please consider calling our outpatient Addiction Treatment office:? [facility] (M-F [id number]-[id number]) [address] [place] [address] [address] You have also been given a list of treatment providers in the area that can assist as well.? If you experience seizures, vomiting blood, black stools, falls, severe headache, chest pain, fevers, trouble breathing, hallucinations or any other concerns you need to call 911 or seek immediate care. Please stay hydrated. Prescriptions: No Action lamotrigine 100 mg tablet 100 mg PO DAILY bupropion HCl 75 mg tablet 75 mg PO QAM atorvastatin 20 mg tablet 20 mg PO DAILY potassium chloride 10 mEq capsule, extended release 10 meq PO DAILY lithium carbonate 450 mg tablet extended release 450 mg PO BID chlorthalidone 25 mg tablet 50 mg PO DAILY clonazepam 2 mg tablet 2 mg PO BID naproxen 500 mg tablet 500 mg PO BID PRN (Reason: Pain) albuterol sulfate [Ventolin HFA] 90 mcg/actuation HFA aerosol inhaler 0 mcg inhalation aspirin 81 mg tablet,delayed release (DR/EC) 81 mg PO DAILY loratadine 10 mg tablet 10 mg PO DAILY Print Language: Chadian
[2025-08-02 01:45] LABS: MANUAL DIFF FLAG NO
[2025-08-02 01:46] LABS: Hematocrit 49.0 % (42.0-52.0); Hemoglobin 16.4 g/dl (14.0-18.0); Imm Gran Abs Auto 0.10 X10*3/uL (0.00-0.03); Imm Gran Pct Auto 1.1 % (0.0-0.4); Lymphocytes Absolute Auto 2.6 X10*3/uL (1.2-4.9); Mean Corpuscular HGB Conc 33.5 g/dl (31.0-36.0); Mean Corpuscular Hemoglobin 28.3 pg (27.0-33.0); Mean Corpuscular Volume 84.5 fL (80.0-98.0); NRBC Abs Auto 0.000 X10*3/uL (0.0-0.012); NRBC Pct Auto 0.0 /100WBC (0.0-0.2); Platelet Count 199 X10*3/uL (160-400); Red Blood Count 5.80 X10*6/uL (4.60-5.80); White Blood Count 9.4 X10*3/uL (4.8-10.8)
--- NOTE | 2025-08-02 02:01 | PC.NURSE ---
pt reporting chest pain at this time. EKG ordered. provider aware
[2025-08-02 02:20] LABS: Alanine Aminotransferase 54 U/L (0-40); Albumin Level 4.6 g/dL (3.5-5.0); Alkaline Phosphatase 88 U/L (39-117); Anion Gap 15 (12-20); Aspartate Amino Transferase 46 U/L (5-37); Blood Urea Nitrogen 14 mg/dL (9-16); Calcium 8.6 mg/dL (8.4-10.2); Carbon Dioxide 22 mmol/L (22-29); Chloride 113 mmol/L (96-108); Creatinine Clr Calc Pharmacy 94.9; Estimated Glomerular Filt Rate > 60; Potassium 4.3 mmol/L (3.3-5.1); Sodium 146 mmol/L (135-145); Total Protein 7.8 g/dL (6.5-8.0)
[2025-08-02 02:40] LABS: Acetaminophen LAB < 3 mcg/mL (<30); Salicylate < 5.0 mg/dL (15-30)
--- OUTSIDE RECORDS SUMMARY | 2025-08-02 02:56 | XMS_ITS | Encounter Summary ---
Author Organization [employer] Address [address] [place] [address] Care Team Providers Care Geophysics Teacher Name Role Phone Name, Shabbir SHEPARD Primary Care Provider [phone] Ciro Lilly DMD Unavailable Gregg, Oneida OD Unavailable [phone] Prem Montgomeryalex DPM Unavailable [phone] Reason for Visit * Reason Comments Med Refill Encounter Details Date Type Department Care Team ([facility] st Contact Info) Description 06/07/2025 Refill [facility] [address] [place], [place] [phone] Name, MD Shabbir [address] [place] [address] Social History Tobacco Use Types Packs/Day Years [...] Care Team (Late st Contact Info) Description 08/04/2025 3:30 PM EDT Office Visit [facility] [address] [place] [address] Oneida Escobedo, OD [address] [place] [address] 08/30/2025 2:15 PM EDT Office Visit [facility] ADULT DENTAL [address] [place] [address] Sofie Chanel [address] [place] [address] 10/03/2025 11:30 AM EST Office Visit [facility] [address] [place] [address] Name, MD Shabbir [address] [place] [address] documented as of this encounter Visit Diagnoses Not on filedocumented in this encounter Additional Health Concerns Assessment Noted Time PHQ-9 Depression Total Score: 12 025 11:53 AM EST documented as of this encounter Care Teams Geophysics Teacher Relationship Specialty Start Date End Date Name, MD Shabbir [address] [place], [place] [phone] PCP - General Family Medicine 02/21/16 Ciro Lilly DMD [address] [place], [place] [phone] Dental Waistline Joiner Lockstitch 01/17/25 Oneida Escobedo OD [address] [place], [place] [phone] Optometry 01/17/25 Channing Montgomery DPM [address] [place] [phone] Podiatry 01/17/25 documented as of this encounter
--- OUTSIDE RECORDS SUMMARY | 2025-08-02 02:57 | XMS_ITS | Clinical Summary ---
Author Organization [employer] Address [address] [place] [address] Care Team Providers Care Lumber Mover Name Role Phone Name, Shabbir SHEPARD Primary Care Provider [phone] Ciro Lilly DMD Unavailable GreggOneida silva OD Unavailable Channing Montgomery DPM Unavailable Allergies Active Allergy Reactions Criticality Noted Date Comments Zimbabwean Cockroach 08/25/2024 Hives and agioedema Dog Epithelium High 04/24/2025 Other Reaction(s): ASTHMA Other 08/03/2020 Other Reaction(s): FROM ALLERGY TESTING Penicillin V High 11/01/2013 Other reaction(s): itchiness Short Ragweed Pollen Ext 04/24/2025 Other Reaction(s): FROM ALLERGY TESTING Medications albuterol 108 (90 Base) MCG/ACT inhaler 03/05/20 [...] DAY 90 tablet 3 12/01/19 25 Active atorvastatin (Lipitor) 20 MG tablet Take 1 tablet (20 mg) by mouth Once per day. 90 tablet 3 04/08/20 25 Active potassium chloride ER (Micro-K) 10 MEQ ER capsule TAKE 1 CAPSULE BY MOUTH EVERY DAY WITH FOOD 30 capsule 5 04/08/20 Active lithium ER (Eskalith) 450 MG [...] per day. 30 tablet 2 04/08/20 25 Active buPROPion (Wellbutrin) 75 MG tablet Take 1 tablet (75 mg) by mouth Once per day. 90 tablet 5 04/08/20 Active ibuprofen 800 MG tabletIndicati ons:Anterior knee pain, unspecified laterality TAKE 1 TABLET BY MOUTH THREE TIMES DAILY NEEDED FOR MILD OR MODERATE PAIN. TAKE WITH FOOD 90 tablet 06/21/20 25 Active clonazePAM (KlonoPIN) 2 MG tabletIndicati ons:Anxiety TAKE 1 TABLET BY MOUTH TWICE DAILY IN THE MORNING AND AT BEDTIME NEEDED FOR ANXIETY 56 tablet 07/29/20 25 025 Active clonazePAM (KlonoPIN) 2 MG tabletIndicati ons:Anxiety Take 1 tablet (2 mg) by mouth if needed in the morning and at bedtime for anxiety. 56 tablet 06/27/20 25 025 Discontinued Active Problems Problem Noted Date Diagnosed Date Retained dental root 05/02/2025 Missing teeth, acquired 09/26/2023 Dental plaque 09/26/2023 [...] Encounters Date Type Department Care Team Description 07/28/2025 Refill [facility] [address] [place] [address] Shabbir Treviño MD Anxiety 07/27/2025 Telephone [facility] AD[facility] DENT[facility] [address] [place] [address] Sofie Chanel 07/07/2025 Telephone [facility] [address] [place] [address] Keny Mccord MA oct recalls 06/27/2025 Refill [facility] [address] [place] [address] Shabbir Treviño MD Anxiety 06/18/2025 Refill [facility] [address] [place] [address] Shabbir Treviño MD Anterior knee pain, unspecified laterality 06/07/2025 Refill [facility] [address] [place] [address] Shabbir Treviño MD 05/27/2025 Refill [facility] [address] [place] [address] Shabbir Treviño MD Anxiety 05/26/2025 Refill [facility] [address] [place] [address] Shabbir Treviño MD Anterior knee pain, unspecified laterality 05/04/2025 3:00 PM EDT Office Visit [facility] [address] [place] [address] Gregg, Oneida, OD Glaucoma suspect of both eyes (Primary Dx); Dry eyes; Nuclear sclerotic cataract of both eyes; RPE mottling of macula; Central serous chorioretinopathy of left eye; Presbyopia 05/04/2025 Travel 05/02/2025 2:30 PM EDT Office Visit [facility] [address] [place] [address] Patrick Young, BEVERLY Retained dental root (Primary Dx) from Last 3 Months Immunizations Immunization Administration [...] Relation Name Comments No Known Problems Brother Glaucoma Father Hypertension Mother No Known Problems Sister [...] Sign Reading Time Taken Comments Blood Pressure 144/82 05/02/2025 2:12 PM EDT Pulse 84 04/08/2025 11:20 AM EDT Temperature 36.1 C (96.9 F) 04/08/2025 11:20 AM EDT Respiratory Rate 18 04/08/2025 11:20 AM EDT [...] Description 08/04/2025 3:30 PM EDT Office Visit [facility] [address] [place] [address] GreggOneida silva, OD [address] [place] [address] 08/30/2025 2:15 PM EDT Office Visit [facility] [address] [place] [address] Darío, Sofie [address] [place] [address] 10/03/2025 11:30 AM EST Office Visit [facility] [address] [place] [address] Name, MD Shabbir [address] [place] [address] Health Maintenance Due Date Last Done Comments Anal Pap 1958 CT Colonography 1958 FIT DNA/Cologuard 1958 FIT 1958 FOBT 1958 Sigmoidoscopy 1958 Hepatitis C Screening 1976 Hepatitis B Vaccines (3 of 3 - Risk 3-dose series) 06/13/2016 01/16/2016, 12/14/2015 RSV Patients and Patients Aged 60 years or older (1 - Risk 60-74 years 1-dose series) 2018 Colonoscopy 03/08/2019 03/08/2014 Colorectal Cancer Screening 03/08/2019 Depression Monitoring 07/12/2025 01/12/2025, 025 COVID-19 Vaccine ( season) 2025 08/25/2024, 12/25/2022, 08/20/2022, Additional history exists Influenza Vaccine (#1) 2025 , 08/21/2023, 08/08/2022, Additional history exists Dental Oral Exam 08/25/2025 02/22/2025, 08/2023, 10/28/2019, Additional history exists Dental Prophylaxis 08/25/2025 02/22/2025, 1 11/26/2022, 10/28/2019, Additional history exists Alcohol/Substance Use Screening 01/17/2026 01/17/2025 SDOH Screening 01/17/2026 01/17/2025 Dental X-Ray: Bitewings 02/23/2026 02/23/20 25, 09/26/2023, 10/28/2019, Additional history exists Tobacco Screening 05/13/2026 05/13/2025 Dental X-Ray: Full Mouth 09/27/2026 023, 10/28/2019, 02/26/2016 Lipid Panel 03/17/2030 03/17/2025, 010 03/2024, 06/11/2022, Additional history exists DTaP/Tdap/Td Vaccines (3 - Td or Tdap) 02/24/2034 02/25/2024, 12/02/2013 Hepatitis A Vaccines Completed 06/17/2016, 12/14/19 16 Pneumococcal Vaccine: 50+ Years Completed 07/11/2023 Zoster Vaccines Completed 09/15/2023, 07/16/2023 HIB Vaccines Aged Out No longer eligi [...] this topic Meningococcal Vaccine Aged Out No ejs [place] eligible based on patient's age to complete this topic RSV under 20 months Aged Out No longe r eligible based on patient's age to complete this topic Rotavirus Vaccines Aged Out No longer eligible based on patient's age to complete this topic Procedures Procedure Name Priority Date/Time Associated Diagnosis Comments OCT, OPTIC NERVE - OU - BOTH EYES Routine 05/04/2025 3:00 PM EDT Glaucoma suspect of both eyes NO CHARGE VISIT Routine 05/02/2025 2:30 PM EDT LIPID PANEL, STANDARD Routine 03/17/2025 9:26 AM EDT Hyperlipidemia, unspecified hyperlipidemia type PROPHYLAXIS - ADULT Routine 02/22/2025 1 :00 PM EDT BITEWINGS - 4 RADIOGRAPHIC IMAGES Routine 02/22/2025 1:00 PM EDT PERIODIC ORAL EVALUATION - ESTABLISHED PATIENT Routine 02/22/2025 1:00 PM EDT INTRAORAL - COMPLETE SERIES OF RADIOGRAPHIC IMAGES Routine 09/26/2023 1:00 PM EST HM COLONOSCOPY Routine 03/08/2014 from Last 3 Months or Most Recently Relevant to Health Maintenance Results * OCT, Optic Nerve - OU - Both Eyes (05/04/2025 3:00 PM EDT) Magali OrtegafoOneida, OD - 05/16/2025 9:52 AM EDT Images from the original result were not included. Right Eye Images reviewed. To assess optic nerve function and for use in future follow-up. Reliability: good and adequate. Left Eye Images reviewed. To assess optic nerve function and for use in future follow-up. Reliability: good and adequate. Notes OCT OPTIC NERVE INTERPRETATION Optical Coherence Tomography Interpretation Report Test Details: Measurements: OD OS C/D Horizontal 0.71 0.70 C/D Vertical 0.73 0.76 Disc area 2.57 mm 2 2.27 mm 2 RNFL Average 74 microns 77 microns Test findings: OD: Definite RNFL thinning in temporal and inferior quadrants, borderline RNFL thinning in superior quadrant, normal RNFL thickness in nasal quadrant OS: Definite RNFL thinning in temporal and inferior quadrants, borderline RNFL thinning in superior quadrant, normal RNFL thickness in nasal quadrant Impression and Plan: Will have patient return for a glaucoma work up in 3-4 months (visual field, gonioscopy, pachymetry, goldmann intraocular pressure (IOP) check). Oneida Escobedo OD OPHTH TOMOGRAPHY Final Result * Lipid Panel, Standard (03/17/2025 9:26 AM EDT) Triglycerides 131 <150 mg/dL [facility] Comment:Desirable Triglyceri de: less than 150 mg/dLBorderline High Triglyceride 150-199 mg/dLHigh Triglyceride: 200-499 mg/dLVery High Triglyceride: greater than or equal to 5OO mg/dL Cholesterol 117 <200 mg/dL [facility] Comment:Desirable Cholestero l: less than 200 mg/dLBorderline High Cholesterol: 200-239 mg/dLHigh Cholesterol: greater than 239 mg/dL LDL Cholesterol Calculated 48 <100 mg/dL [facility] Comment:Desirable LDL: less than 100 mg/dLNear Optimal/Above Optimal LDL: 110- 129 mg/dLBorderline High LDL: 130-159 mg/dLHigh LDL: 160-189 mg/dLVery High LDL: greater than or equal to 190 mg/dL HDL Cholesterol 43 >40 mg/dL [facility] Comment:Desirable HDL: great er than 40 mg/dL Note: This HDL assay may give artificially low results in patients with liver disease. Blood Venous blood specimen / Unknown 03/17/2025 9:26 AM EDT 03/17/2025 11:23 AM EDT Shabbir Treviño MD LAB BLOOD ORDERABLES Final Resul t [facility] [address] [place] [address] [phone] * (ABNORMAL) Colonoscopy (03/08/2014) Colonoscopy Abnormal(A ) Normal [facility] External Provider HEALTH MAINTENANCE Final Result from Last 3 Months or Most Recently Relevant to Health Maintenance Insurance MEDICARE [facility] STANDARD MEDICARE DENTAL - HSN FULL (MEDICAID) Care Teams Lumber Mover Relationship Specialty Start Date End Date Name, MD Shabbir [address] [place] [address] PCP - General Family Medicine 02/21/16 Ciro Lilly DMD [address] [place], [place] [phone] Dental Voice Teacher 01/17/25 Oneida Escobedo OD [address] [place], [place] [phone] Optometry 01/17/25 Channing Montgomery DPM [address] [place] [address] Podiatry 01/17/25
--- OUTSIDE RECORDS SUMMARY | 2025-08-02 02:57 | XMS_ITS | Encounter Summary ---
Author Organization [employer] Address [address] 7[address] [place] [address] Care Team Providers Care Hat Brim Curler Name Role Phone Name, Shabbir SHEPARD Primary Care Provider [phone] Ciro Lilly DMD Unavailable GreggOneida silva OD Unavailable [phone] Channing Montgomery DPM Unavailable [phone] Reason for Visit * Reason Comments Med Refill Encounter Details Date Type Department Care Team (Late st Contact Info) Description 12/18/2024 Refill [facility] CHC MED & PEDS [address] [place] [address] Nelly Mcneal, JED 230 [place] [address] Anxiety Social History Tobacco Use Types Packs/Day [...] Description 08/04/2025 3:30 PM EDT Office Visit [facility] OPTOMETRY [address] [place] [address] Gregg, Oneida, OD 230 [place] [address] 08/30/2025 2:15 PM EDT Office Visit [facility] ADULT DENTAL 230 [place] [address] Darío, Sofie 230 [place] [address] 10/03/2025 11:30 AM EST Office Visit [facility] MEDICINE 230 [place] [address] Name, MD Shabbir 230 [place] [address] documented as of this encounter Visit Diagnoses Diagnosis Anxiety Anxiety state, unspecified documented in this encounter Additional Health Concerns Assessment Noted Time PHQ-9 Depression Total Score: 14 024 2:17 PM EDT documented as of this encounter Care Teams Hat Brim Curler Relationship Specialty Start Date End Date Name, MD Shabbir 230 [place] [address] PCP - General Family Medicine 02/21/16 Ciro Lilly DMD 230 [place], [place] [phone] Dental Public Health Analyst 01/17/25 Oneida Escobedo OD 230 [place], [place] [phone] Optometry 01/17/25 Channing Montgomery DPM [address] [place] [address] Podiatry 01/17/25 documented as of this encounter
--- OUTSIDE RECORDS SUMMARY | 2025-08-02 02:57 | XMS_ITS | Encounter Summary ---
Author Organization [employer] Address [address] [facility] [address] 7t [place] [address] Care Team Providers Care Transition Advisor Name Role Phone Name, Shabbir SHEPARD Primary Care Provider [phone] Ciro Lilly DMD Unavailable Gregg, Oneida OD Unavailable [phone] Prem Montgomeryalex DPM Unavailable [phone] Reason for Visit * Reason Onset Date Comments Med Refill 12/23/2023 Encounter Details Date Type Department Care Team (Late st Contact Info) Description 12/23/2023 Telephone [facility] MEDICINE [address] [place], [place] [phone] Name, MD Shabbir [address] [place], [place] [phone] Med Refill Social History Tobacco Use Types [...] 800 mg tablet To be sent to: [facility] Pharmacy Medication is currently inactive. documented in this encounter Plan of Treatment Upcoming Encounters Date Type Department Care Team (Late st Contact Info) Description 08/04/2025 3:30 PM EDT Office Visit [facility] OPTOMETRY [address] [place] [address] Oneida Escobedo, OD 230 [place] [address] 08/30/2025 2:15 PM EDT Office Visit [facility] ADULT DENTAL [address] [place] [address] Sofie Chanel [address] [place] [address] 10/03/2025 11:30 AM EST Office Visit [facility] MEDICINE [address] [place] [address] Name, MD Shabbir [address] [place] [address] documented as of this encounter Visit Diagnoses Not on filedocumented in this encounter Care Teams Transition Advisor Relationship Specialty Start Date End Date Name, MD Shabbir [address] [place] [address] PCP - General Family Medicine 02/21/16 Ciro Lilly DMD [address] [place] [address] Dental Intelligence Specialist 01/17/25 Oneida Escobedo, SHELLEY 230 [place] [address] Optometry 01/17/25 Channing Montgomery DPM [address] [place] [address] Podiatry 01/17/25 documented as of this encounter
--- OUTSIDE RECORDS SUMMARY | 2025-08-02 02:57 | XMS_ITS | Clinical Summary ---
Author Organization [address] [facility] Address 175 [place] [address] Phone Care Team Providers Care Jewelry Appraiser Name Role Phone Unavailable Primary Care Provider Unavailabl e Allergies Active Allergy Reactions Criticality Noted Date Comments Penicillins 06/06/2025 Encounters Date Type Department Care Team Description 06/06/2025 1:00 PM EDT Consult Orthopedic Surgery [facility] [address] [phone] Carlo Bergeron DPM Pain in toes of both feet (Primary Dx); Arthritis of both feet; Cellulitis of right foot; Dermatophytosis, nail from Last 3 Months Social History Tobacco Use Types Packs/Day Years Used Date Smoking Tobacco: Never Assessed Sex and Gender Information Value Date Recorded Sex Assigned at Not on file Legal Sex Male 4:01 PM EDT Gender Identity Not on file Sexual Orientation Not on file Plan of Treatment Upcoming Encounters Date Type Department Care Team ([facility] st Contact Info) Description 08/08/2025 1:00 PM EDT Office Visit Orthopedic Surgery [facility] [address] [phone] Carlo Bergeron DPM [address] [address] Health Maintenance Due Date Last Done Comments Hepatitis B Vaccines (3 of 3 - Risk 3-dose series) 06/13/2016 01/16/2016, 12/14/2015 RSV Immunization Adult Patients (1 - Risk 60-74 years 1-dose series) 2018 Depression Screening 11/17/2024 Colorectal Cancer Screening: Colonoscopy 02/23/2025 Falls Risk Assessment 02/23/2025 Hepatitis C Screening 02/23/2025 Medicare Annual Wellness Visit 02/23/2025 Social Influencers of Health Screening 02/23/2025 COVID-19 Vaccine ( season) 2025 08/25/2024, 12/25/2022, 08/20/2022, Additional history exists Influenza Vaccine (#1) 2025 , 08/21/2023, 08/08/2022, Additional history exists Hypertension/CHF/CAD Annual BMP Blood Test 03/17/2026 03/17/2025 Cholesterol Screening (Lipid Panel) 03/17/2030 03/17/2025 DTaP,Tdap,and Td Vaccines (3 - Td or Tdap) 02/24/2034 [...] to complete this topic RSV Immunization Patients Under 20 months Aged Out No longer eligible based on patient's age to complete this topic Varicella Vaccines Aged Out No longer eligible based on patient's age to complete this topic Insurance MEDICAID - [place] MEDICARE
--- OUTSIDE RECORDS SUMMARY | 2025-08-02 02:57 | XMS_ITS | Encounter Summary ---
Author Organization [employer] Address [address] [facility] [facility] [address] 7[address] [place] [address] Care Team Providers Care Taker Off Drying Kiln Name Role Phone Name, Shabbir SHEPARD Primary Care Provider [phone] Ciro Lilly DMD Unavailable Gregg, Oneida OD Unavailable [phone] Prem Montgomeryalex DPM Unavailable [phone] Reason for Visit * Reason Comments Med Refill Encounter Details Date Type Department Care Team ([facility] st Contact Info) Description 10/06/[address] [facility] MEDICINE [address] [place], [place] [phone] Name, MD Shabbir 230 [place] [address] Social History Tobacco Use Types Packs/Day Years [...] Description 08/04/2025 3:30 PM EDT Office Visit [facility] OPTOMETRY [address] [place] [address] Gregg, Oneida, OD 230 [place] [address] 08/30/2025 2:15 PM EDT Office Visit [facility] ADULT DENTAL 230 [place] [address] Darío, Sofie 230 [place] [address] 10/03/2025 11:30 AM EST Office Visit [facility] MEDICINE [address] [place] [address] Name, MD Shabbir [address] [place] [address] documented as of this encounter Visit Diagnoses Not on filedocumented in this encounter Additional Health Concerns Assessment Noted Time PHQ-9 Depression Total Score: 14 024 2:17 PM EDT documented as of this encounter Care Teams Taker Off Drying Kiln Relationship Specialty Start Date End Date Name, MD Shabbir 230 [place] [address] PCP - General Family Medicine 02/21/16 Ciro Lilly DMD [address] [place], [place] [phone] Dental Emergency Management Program Specialist 01/17/25 Oneida Escobedo OD 230 [place] [address] Optometry 01/17/25 Channing Montgomery DPM [address] [place] [address] Podiatry 01/17/25 documented as of this encounter
--- OUTSIDE RECORDS SUMMARY | 2025-08-02 02:57 | XMS_ITS | Encounter Summary ---
Author Organization [employer] Address [address] [facility] [address] [facility] [address] 7[address] [place] [address] Care Team Providers Care Decorator Mannequin Name Role Phone Name, Shabbir SHEPARD Primary Care Provider [phone] Ciro Lilly DMD Unavailable GreggNirn OD Unavailable [phone] Channing Montgomery DPM Unavailable [phone] Reason for Visit * Reason Onset Date Comments Appointment Request 10/13/2023 Encounter Details Date Type Department Care Team ([facility] st Contact Info) Description 10/13/2023 Telephone [facility] MEDICINE 230 [place], [place] [phone] Name, MD Shabbir 230 [place], [place] [phone] Appointment Request Social History Tobacco Use Types Packs/Day Years Used Date Smoking Tobacco: Never Smokeless Tobacco: Never Alcohol Use Standard Drinks/Week Comments Yes 0 (1 standard drink = 0.6 oz pur e alcohol) socially PHQ-2 Answer Date Recorded Patient Health Questionnaire-2 Score 2 12/25/2022 Housing Stability Answer Date Recorded What is your housing situation today? I have duncan nair 09/03/[address] you [...] another follow up appt 8 weeks after. Deputy Prosecuting Attorney don't see nothing on last office visit neither recall list. PCP Dr. Treviño documented in this encounter Plan of Treatment Upcoming Encounters Date Type Department Care Team (Late st Contact Info) Description 08/04/2025 3:30 PM EDT Office Visit [facility] OPTOMETRY [address] [place] [address] Gregg, Oneida, OD 230 [place] [address] 08/30/2025 2:15 PM EDT Office Visit [facility] ADULT DENTAL 230 [place] [address] Darío, Sofie 230 [place] [address] 10/03/2025 11:30 AM EST Office Visit [facility] MEDICINE 230 [place] [address] Name, MD Shabbir 230 [place] [address] documented as of this encounter Visit Diagnoses Not on filedocumented in this encounter Care Teams Decorator Mannequin Relationship Specialty Start Date End Date Name, MD Shabbir 230 [place], [place] [phone] PCP - General Family Medicine 02/21/16 Ciro Lilly DMD 230 [place], [place] [phone] Dental Rn Pool 01/17/25 Oneida Escobedo OD 230 [place], [place] [phone] Optometry 01/17/25 Channing Montgoemry DPM [address] [place] [address] Podiatry 01/17/25 documented as of this encounter
--- OUTSIDE RECORDS SUMMARY | 2025-08-02 02:57 | XMS_ITS | Encounter Summary ---
Author Organization [employer] Address [address] [facility] [address] 7t [place] [address] Care Team Providers Care Sugar Grinder Name Role Phone Name, Shabbir SHEPARD Primary Care Provider Ciro Lilly DMD Unavailable Oneida Escobedo OD Unavailable Prem Montgomeryalex DPM Unavailable [phone] Encounter Details Date Type Department Care Team (Latest Contact Info) Description 10/28/2019 Abstract [facility] CONVERSIONS Dental, Provider, DDS Social History [...] 08/04/2025 3:30 PM EDT Office Visit [facility] OPTOMETRY 267 [place] [address] Oneida Escobedo, OD 230 [place] [address] 08/30/2025 2:15 PM EDT Office Visit [facility] ADULT DENTAL 230 [place] [address] Darío, Sofie 230 [place] [address] 10/03/2025 11:30 AM EST Office Visit [facility] MEDICINE [address] [facility] [place] [place] [address] Name, MD Shabbir [address] [facility] [place] [address] documented as of this encounter Visit Diagnoses Not on filedocumented in this encounter Care Teams Sugar Grinder Relationship Specialty Start Date End Date Name, MD Shabbir 230 [facility] [place] [address] PCP - General Family Medicine 02/21/16 Ciro Lilly DMD 230 [place], [place] [phone] Dental Veterans Services Specialist 01/17/25 Oneida Escobedo OD 230 [place], [place] [phone] Optometry 01/17/25 Channing Montgomery DPM [address] [place] [address] Podiatry 01/17/25 documented as of this encounter
--- OUTSIDE RECORDS SUMMARY | 2025-08-02 02:57 | XMS_ITS | Encounter Summary ---
Author Organization [employer] Address [address] [facility] 7t [place] [address] Care Team Providers Care Asbestos Worker Helper Name Role Phone Name, Shabbir SHEPARD Primary Care Provider [phone] Ciro Lilly DMD Unavailable Oneida Escobedo OD Unavailable [phone] Prem Montgomeryalex DPM Unavailable Encounter Details Date Type Department Care Team (Late Contact Info) Description 04/28/2023 Abstract [facility] MEDICINE 230 [place] [address] Name, MD Shabbir 230 [place] [address] Social History Tobacco Use Types Packs/Day Years [...] Description 08/04/2025 3:30 PM EDT Office Visit [facility] OPTOMETRY [address] [place], [place] [phone] Oneida Escobedo, OD 230 [place] [address] 08/30/2025 2:15 PM EDT Office Visit [facility] ADULT DENTAL 230 [place] [address] Sofie Chanel 230 [place] [address] 10/03/2025 11:30 AM EST Office Visit [facility] MEDICINE [address] [place] [address] Name, MD Shabbir 230 [place] [address] documented as of this encounter Visit Diagnoses Not on filedocumented in this encounter Care Teams Asbestos Worker Helper Relationship Specialty Start Date End Date Name, MD Shabbir [address] [place] [address] PCP - General Family Medicine 02/21/16 Ciro Lilly DMD [address] [place] [phone] Dental Guest Room Attendant 01/17/25 Oneida Escobedo OD [address] [place] [address] Optometry 01/17/25 Channing Montgomery DPM [address] [place] [address] Podiatry 01/17/25 documented as of this encounter
--- OUTSIDE RECORDS SUMMARY | 2025-08-02 02:57 | XMS_ITS | Encounter Summary ---
Author Organization [employer] Address [address] 7t [place] [address] Care Team Providers Care Pneumatic Tube Fitter Name Role Phone Name, Shabbir SHEPARD Primary Care Provider [phone] Ciro Lilly DMD Unavailable Gregg, Oneida OD Unavailable [phone] Prem Montgomeryalex DPM Unavailable [phone] Reason for Visit * Reason Comments Med Refill Encounter Details Date Type Department Care Team (Late st Contact Info) Description 12/23/2023 Refill [facility] MEDICINE 230 [place], [place] [phone] Name, MD Shabbir 230 [place], [place] [phone] Social History Tobacco Use Types Packs/Day Years [...] Description 08/04/2025 3:30 PM EDT Office Visit [facility] OPTOMETRY [address] [place] [address] Oneida Escobedo, OD 230 [place] [address] 08/30/2025 2:15 PM EDT Office Visit [facility] ADULT DENTAL 230 [place] [address] Darío, Sofie 230 [place] [address] 10/03/2025 11:30 AM EST Office Visit [facility] MEDICINE 230 [place] [address] Name, MD Shabbir [address] [place] [address] documented as of this encounter Visit Diagnoses Not on filedocumented in this encounter Care Teams Pneumatic Tube Fitter Relationship Specialty Start Date End Date NameShabbir MD [address] [place] [address] PCP - General Family Medicine 02/21/16 Ciro Lilly DMD [address] [place] [address] Dental Lab Pack Chemist 01/17/25 Oneida Escobedo OD 230 [place] [address] Optometry 01/17/25 Channing Montgomery DPM [address] [address] Podiatry 01/17/25 documented as of this encounter
--- OUTSIDE RECORDS SUMMARY | 2025-08-02 02:57 | XMS_ITS | Encounter Summary ---
Author Organization [employer] Address [address] 7[address] [place] [address] Care Team Providers Care Rn Plastics Name Role Phone Name, Shabbir SHEPARD Primary Care Provider [phone] Crio Lilly DMD Unavailable GreggOneida silva OD Unavailable [phone] Prem Montgomeryalex DPM Unavailable [phone] Reason for Visit * Reason Comments Med Refill Encounter Details Date Type Department Care Team (Late st Contact Info) Description 07/28/2025 Refill [facility] CHC MED & PEDS [address] [place] [address] Name, MD Shabbir 230 [place] [address] Anxiety Social History Tobacco Use Types Packs/Day [...] Description 08/04/2025 3:30 PM EDT Office Visit [facility] OPTOMETRY [address] [place] [address] Oneida Escobedo, OD 230 [place] [address] 08/30/2025 2:15 PM EDT Office Visit [facility] ADULT DENTAL 230 [place] [address] Sofie Chanel 230 [place] [address] 10/03/2025 11:30 AM EST Office Visit [facility] MEDICINE 230 [place] [address] Name, MD Shabbir 230 [place] [address] documented as of this encounter Visit Diagnoses Diagnosis Anxiety Anxiety state, unspecified documented in this encounter Additional Health Concerns Assessment Noted Time PHQ-9 Depression Total Score: 12 025 11:53 AM EST documented as of this encounter Care Teams Rn Plastics Relationship Specialty Start Date End Date Name, MD Shabbir 230 [place], [place] [phone] PCP - General Family Medicine 02/21/16 Ciro Lilly DMD 230 [place], [place] [phone] Dental Supervisor Phosphoric Acid 01/17/25 Oneida Escobedo OD 230 [place], [place] [phone] Optometry 01/17/25 Channing Montgomery DPM [address] [address] Podiatry 01/17/25 documented as of this encounter
--- NOTE | 2025-08-02 04:45 | PC.NURSE ---
pt medicated per MAR, tolerated well.
[2025-08-02 06:00] VITALS: BP 140/88; PULSE 88; RESP 18; TEMP 36.4; O2SAT 97
--- NOTE | 2025-08-02 06:53 | MHC.EDTECH ---
belongings locked up in [facility] shelf 3 , except knife in which are locked up with security.
--- NOTE | 2025-08-02 07:59 | PC.NURSE ---
Pt A+Ox4, calm cooperative. RR even and unlabored, c/o some chronic pain in chest but no other complaints. Small scrape on R forehead from a fall. PT denies any SOB.
[2025-08-02 08:18] VITALS: BP 147/80; PULSE 94; RESP 18; O2SAT 96
--- NOTE | 2025-08-02 09:17 | PC.NURSE ---
Spoke to patient. Pt calm, cooperative. Pt denies SI/HI at this time. Pt sts he was joking around when he was drunk and saying he's thought of SI in the past but was not serious. No visible s/s of distress, RR even and unlabored.
--- NOTE | 2025-08-02 10:02 | PC.NURSE ---
Report called to pod, security notified patient going to POD 2.
--- NOTE | 2025-08-02 10:16 | MHC.EDTECH ---
Patient arrived to pod from main ED with phone in hand. Pt relinquished phone to RN, this tech moved patient belongings from SP to pod locker 2.
[2025-08-02 10:28] VITALS: BP 147/80; PULSE 94; RESP 18; TEMP 36.4
== END 2025-08-02 10:42 | disposition home or self-care (01) ==
PROVIDERS: Physician Assistant; Emergency Provider Emergency Medicine
DX: F10.929 Alcohol use, unspecified with intoxication, unspecified (principal); Y90.8 Blood alcohol level of 240 mg/100 ml or more; R07.9 Chest pain, unspecified; S09.90XA Unspecified injury of head, initial encounter; W19.XXXA Unspecified fall, initial encounter; Y93.9 Activity, unspecified; Y92.9 Unspecified place or not applicable; Y99.9 Unspecified external cause status; Z79.899 Other long term (current) drug therapy
CPT/HCPCS: 36415; 70450; 70486; 72125; 80053; 80143; 80179; 80307; 85025; 93005; 96372; 99284; 99285; J1885; S9485

== ENCOUNTER → 2025-08-02 02:05 | Outpatient (BNV) | payer MEDICARE, MEDICAID, SELFPAY | PROVIDERS: Emergency Provider Emergency Medicine; Visit Provider Internal Medicine | DX: R07.9 Chest pain, unspecified (principal) | CPT/HCPCS: 93010 ==

== ENCOUNTER → 2025-08-02 03:06 | Outpatient (BNV) | payer MEDICARE, MEDICAID, SELFPAY | PROVIDERS: Emergency Provider Emergency Medicine; Visit Provider Radiology Vascular & Interventional Radiology | DX: M50.30 Other cervical disc degeneration, unspecified cervical region (principal); S02.2XXA Fracture of nasal bones, initial encounter for closed fracture; R90.89 Other abnormal findings on diagnostic imaging of central nervous system | CPT/HCPCS: 70450; 70486; 72125 ==